=== PATIENT | male | born 1965 | race Caucasian/White ===

== ENCOUNTER 2019-05-14 16:04 | Emergency (ER) | payer OTHER ==
[2019-05-14 16:43] VITALS: O2SAT 100
[2019-05-14] MEDS ORDERED: MORPHINE SULFATE 4 MG INJ IV ONE (17:39)
[2019-05-14] MEDS ORDERED: Zofran 4 MG/2 ML VIAL IV ONE (17:39)
[2019-05-14] MEDS ORDERED: Sodium Chloride 0.9% 1000 ML 1,000 ML IV STA (17:39)
--- NOTE | 2019-05-14 17:39 | ERPHSYRPT ---
- History of Present Illness Time Seen by Provider: 05/14/19 17:25 Historian: patient Exam Limitations: no limitations Patient Subjective Stated Complaint: PATIENT WITH SOFT SOFTBALL PALPABLE MASS TO RIGHT GROIN. PATIENT STATES AREA HAS BEEN GETTING BIGGER IN LAST YEAR OR SO. PATIENT WITH SMALLER PALPABLE MASS ABOVE UMBILICUS. PATIENT CONCERNED WITH LIFTING OBJECTS. PATIENT STATES PAIN IS 4 OUT OF 10. Triage Nursing Assessment: PATIENT AMBULATED TO ROOM WITH STEADY GAIT. PATIENT ALERT/ORIENTATED TIMES 4. PATIENT ANSWERS QUESTIONS APPROPRIATLEY. PATIENT OVERALL CENTRAL COLOR PALE. PATIENT APPEARS EMACIATED. PATIENT ADMITTED TO METH USE. PATIENT STATED LAST TIME WAS ON Wednesday05/10/19. PATIENT STATES HE DID HAVE LARGE ALCOHOL CONSUMPTION ABOUT 4 MONTHS. PALPABLE MASS NOTED TO RIGHT GROIN ABOUT THE SIZE OF SOFTBALL. NO REDNESS OR WARMTH NOTED TO AREA. PATIENT WITH SMALLER PALPABLE MASS ABOVE UMBILICUS. PATIENT STATES HE HAS HAD ALSO FOR SEVERAL YEARS. PATIENT STATES HE DOESNT HAVE PCP. PATIENT LUNGS DIMINISHED THROUGHOUT ALL BASES A/P. + BOWEL SOUNDS TIMES 4 QUADS. ABD FLAT NON-DISTENDED. Physician History: for the past 5 months pt has had daily pain over a bulge in his right groin; for the past 3 months pt has had pain over a bulge just above his umbilicus. pt has had intermittent difficulty voiding for the past 5 months. 3 weeks ago pt had 3 days of vomiting without blood. for the past 2 days pt has had chills. pt also states he has had diarrhea for the past 3 weeks without blood. Allergies/Adverse Reactions: Penicillins Allergy (Verified 05/14/19 16:55) Home Medications: No Reportable Medications [No Reported Medications] 05/14/19 [History] Hx Tetanus, Diphtheria Vaccination/Date Given: No Hx Influenza Vaccination/Date Given: No Hx Pneumococcal Vaccination/Date Given: No Immunizations Up to Date: No - Review of Systems Constitutional: Chills, No Fever Abdominal/Gastrointestinal: Abdominal Pain, Vomiting, Diarrhea Genitourinary Symptoms: Other (intermittent difficulty voiding for the past 5 months.) All Other Systems: Reviewed and Negative - Past Medical History Pertinent Past Medical History: No Neurological History: No Pertinent History ENT History: No Pertinent History Cardiac History: No Pertinent History Respiratory History: No Pertinent History Endocrine Medical History: No Pertinent History Musculoskeletal History: No Pertinent History GI Medical History: No Pertinent History History: No Pertinent History Psycho-Social History: No Pertinent History Male Reproductive Disorders: No Pertinent History - Past Surgical History Past Surgical History: Yes Neuro Surgical History: No Pertinent History Cardiac: No Pertinent History Respiratory: No Pertinent History Gastrointestinal: No Pertinent History Genitourinary: No Pertinent History Musculoskeletal: No Pertinent History Male Surgical History: No Pertinent History - Social History Smoking Status: Current every day smoker How long have you smoked: 40 YEARS Exposure to second hand smoke: Yes Drug Use: marijuana, methamphetamines Patient Lives Alone: No - Nursing Vital Signs Nursing Vital Signs: Initial Vital Signs Temperature 97.3 F 05/14/19 16:17 Pulse Rate 73 05/14/19 16:17 Respiratory Rate 18 05/14/19 16:17 Blood Pressure 184/121 05/14/19 16:17 O2 Sat by Pulse Oximetry 100 05/14/19 16:17 Pain Scale Pain Intensity 2 - Physical Exam General Appearance: alert Eye Exam: PERRL/EOMI Ears, Nose, Throat Exam: pharynx normal, moist mucous membranes Neck Exam: normal inspection Respiratory Exam: normal breath sounds Cardiovascular Exam: normal heart sounds Gastrointestinal/Abdomen Exam: tenderness (periumbilical and RLQ.), hernia ( just above umbilicus - reducible.) Male Genitalia Exam: hernia (right inguinal - reducible.) Back Exam: normal range of motion Extremity Exam: No pedal edema Neurologic Exam: alert, cooperative Skin Exam: warm, dry SpO2 Interpretation: normal SpO2: 100 O2 Delivery: Room Air - Course Nursing assessment & vital signs reviewed: Yes - CT Exams Abdomen/Pelvis CT Interpretation: Discussed w/radiologist (incidental right pelvic kidney and evidence for old granulomatous disease. remaining ct abd/pel without contrast is negative.) - Radiology Ultrasound Exam Scrotal Ultrasound: discussed w/radiologist (bilateral varicoceles and tiny right epididymal cyst.) Ordered Tests: Active Orders 24 hr Category Date Time Status IV Insertion STAT Care 05/14/19 17:39 Active ABDOMEN AND PELVIS W/0 CONTRAS [CT] Stat Exams 05/14/19 17:40 Completed TESTICLE [US] Stat Exams 05/14/19 17:41 Completed AMYLASE Stat Lab 05/14/19 18:07 Completed CBC W DIFF Stat Lab 05/14/19 18:07 Completed CMP Stat Lab 05/14/19 18:07 Completed LIPASE Stat Lab 05/14/19 18:07 Completed Manual Differential NC Stat Lab 05/14/19 18:07 Completed UA W/RFX UR CULTURE Stat Lab 05/14/19 18:56 Completed Medication Summary Discontinued Medications Generic Name Dose Route Start Last Admin Trade Name Fady PRN Reason Stop Dose Admin Doxycycline Hyclate 100 mg 05/14/19 18:57 05/14/19 19:26 Vibramycin 100 Mg PO 05/14/19 18:58 Not Given STAT ONE Doxycycline Hyclate Confirm 05/14/19 19:01 Vibramycin 100 Mg Administered 05/14/19 19:02 Dose 100 mg .ROUTE .STK-MED ONE Sodium Chloride 1,000 mls @ 999 mls/hr 05/14/19 17:39 05/14/19 19:03 Sodium Chloride 0.9% 1000 Ml IV 05/14/19 18:39 Infused .Q1H1M STA Infusion Sodium Chloride Confirm 05/14/19 17:58 Sodium Chloride 0.9% 1000 Ml Administered 05/14/19 17:59 Dose 1,000 mls @ ud .ROUTE .STK-MED ONE Morphine Sulfate 4 mg 05/14/19 17:39 05/14/19 18:02 Morphine Sulfate 4 Mg Inj IV 05/14/19 17:40 4 mg STAT ONE Administration Morphine Sulfate Confirm 05/14/19 17:58 Morphine Sulfate 4 Mg Inj Administered 05/14/19 17:59 Dose 4 mg .ROUTE .STK-MED ONE Ondansetron HCl 4 mg 05/14/19 17:39 05/14/19 18:02 Zofran 4 Mg/2 Ml Vial IV 05/14/19 17:40 4 mg STAT ONE Administration Ondansetron HCl Confirm 05/14/19 17:57 Zofran 4 Mg/2 Ml Vial Administered 05/14/19 17:58 Dose 4 mg .ROUTE .STK-MED ONE Potassium Chloride 40 meq 05/14/19 18:57 05/14/19 19:02 Klor Con 10 Meq PO 05/14/19 18:58 40 meq STAT ONE Administration Potassium Chloride Confirm 05/14/19 19:00 Klor Con 10 Meq Administered 05/14/19 19:01 Dose 40 meq PO .STK-MED ONE Lab/Rad Data: Laboratory Result Diagrams 05/14/19 18:07 05/14/19 18:07 Laboratory Results 05/14/19 05/14/19 05/14/19 Range/Units 18:56 18:07 18:07 WBC 9.0 (4.0-10.5) K/mm3 RBC 4.35 (4.1-5.6) M/mm3 Hgb 14.0 (12.5-18.0) gm/dl Hct 41.0 L (42-50) % MCV 94.3 (78-100) fl MCH 32.2 H (26-32) pg MCHC 34.1 (32-36) g/dl RDW 13.6 (11.5-14.0) % Plt Count 224 (150-450) K/mm3 MPV 9.6 (7.5-11.0) fl Sodium 142 (137-145) mmol/L Potassium 3.2 L (3.5-5.1) mmol/L Chloride 103 (98-107) mmol/L Carbon Dioxide 32 H (22-30) mmol/L Anion Gap 9.5 (5-15) MEQ/L BUN 12 (9-20) mg/dL Creatinine 0.80 (0.66-1.25) mg/dL Estimated GFR > 60.0 ML/MIN Glucose 81 (74-106) mg/dL Calcium 8.5 (8.4-10.2) mg/dL Total Bilirubin 0.50 (0.2-1.3) mg/dL AST 21 (17-59) U/L ALT 13 (0-50) U/L Alkaline Phosphatase 88 (38-126) U/L Serum Total Protein 6.6 (6.3-8.2) g/dL Albumin 3.8 (3.5-5.0) g/dL Amylase 47 (30-110) U/L Lipase 146 (23-300) U/L Urine Color YELLOW (YELLOW) Urine Appearance SLIGHTLY CLOUDY (CLEAR) Urine pH 5.0 (5-6) Ur Specific [place] 1.031 (1.005-1.025) Urine Protein 30 (Negative) Urine Ketones NEGATIVE (NEGATIVE) Urine Blood NEGATIVE (0-5) Sheng/ul Urine Nitrite NEGATIVE (NEGATIVE) Urine Bilirubin NEGATIVE (NEGATIVE) Urine Urobilinogen NEGATIVE (0-1) mg/dL Ur Leukocyte Esterase NEGATIVE (NEGATIVE) Urine WBC (Auto) NONE (0-5) /HPF Urine RBC (Auto) 0-2 (0-2) /HPF U Epithel Cells (Auto) NONE (FEW) /HPF Urine Bacteria (Auto) NONE (NEGATIVE) /HPF Urine Mucus (Auto) SLIGHT (NEGATIVE) /HPF Urine Culture Reflexed NO (NO) Urine Glucose NEGATIVE (NEGATIVE) mg/dL - Progress Progress: unchanged Discussed with Dr.: Padilla (pt to call his office tomorrow([phone]) for an appointment.) - Departure Departure Disposition: Home Clinical Impression: Abdominal pain, right inguinal hernia, Periumbilical hernia, Bilateral varicoceles, Hypokalemia Condition: Stable Critical Care Time: No Referrals: DOCTOR,NO FAMILY [Primary Care Provider] - Instructions: Groin Hernia (DC) Additional Instructions: call dr luna's office tomorrow morning for an appointment regarding the hernias([phone]). avoid exertional activities.
[2019-05-14] MEDS ORDERED: Zofran 4 MG/2 ML VIAL ONE (17:57)
[2019-05-14] MEDS ORDERED: MORPHINE SULFATE 4 MG INJ ONE (17:58)
[2019-05-14] MEDS ORDERED: Sodium Chloride 0.9% 1000 ML 1,000 ML ONE (17:58)
[2019-05-14 18:16] LABS: ALBUMIN 3.8 g/dL (3.5-5.0); ALKALINE PHOSPHATASE 88 U/L (38-126); AMYLASE 47 U/L (30-110); ANION GAP 9.5 MEQ/L (5-15); BLOOD UREA NITROGEN 12 mg/dL (9-20); CHLORIDE 103 mmol/L (98-107); Calcium 8.5 mg/dL (8.4-10.2); Carbon Dioxide 32 mmol/L (22-30); Glucose 81 mg/dL (74-106); LIPASE 146 U/L (23-300); Potassium 3.2 mmol/L (3.5-5.1); SGOT/AST 21 U/L (17-59); SGPT/ALT 13 U/L (0-50); SODIUM 142 mmol/L (137-145); Total Protein 6.6 g/dL (6.3-8.2)
[2019-05-14 18:18] LABS: Mean Cell Volume 94.3 fl (78-100); Mean Corpuscular Hemoglobin 32.2 pg (26-32); Mean Corpuscular Hgb Concent. 34.1 g/dl (32-36); Mean Platelet Volume 9.6 fl (7.5-11.0); Platelet Count 224 K/mm3 (150-450); Red Blood Count 4.35 M/mm3 (4.1-5.6); Red Cell Distribution Width 13.6 % (11.5-14.0)
[2019-05-14] MEDS ORDERED: Klor Con 10 MEQ PO ONE ×2 (18:57→19:00)
--- NOTE | 2019-05-14 18:59 | XRAY ---
Indication: Right-sided pain. Two-dimensional testicular sonogram performed. Comparison: None Both testicles are homogeneous in echogenicity with normal symmetric color blood flow. Right testicle measures 4.1 x 2.3 x 2.1 cm and left testicle measures 4.0 x 1.6 x 2.5 cm. The right epididymis demonstrates a 4 mm cyst. Left epididymis unremarkable. Mild bilateral varicoceles accentuated with Valsalva maneuvering. No suspicious extratesticular mass or hydrocele. Impression: 1. Bilateral varicoceles and tiny right epididymal cyst. 2. Remaining testicle sonogram is negative. Comment: Preliminary report was given.
[2019-05-14] MEDS ORDERED: Vibramycin 100 MG ONE (19:01)
[2019-05-14] MEDS: Vibramycin 100 MG PO ONE ×2 (19:02→19:26)
--- NOTE | 2019-05-14 19:07 | XRAY ---
Indication: Right lower quadrant tenderness. Multiple contiguous axial images obtained through the abdomen and pelvis without contrast as ordered. Comparison: None Lung bases demonstrates minimal fibrosis/scarring. No infiltrate or effusion. Heart is not enlarged. Abdomen/pelvis images are limited due to lack of contrast and also paucity of peritoneal fat. Stomach is distended with food/fluid. Normal air-filled appendix best seen on the reformatted images. Mild fecal debris predominantly in the ascending and transverse colon. No free fluid/air. Gallbladder contracted without gallstones or abnormal biliary distention. Incidental right pelvis kidney and tiny splenic granulomas. Remaining liver, pancreas, spleen, adrenal glands, kidneys, ureters, and bladder appear unremarkable for noncontrast exam. Minimal aortic calcifications without AAA. Osseous structures intact with mild multilevel lumbar degenerative changes. Impression: 1. Limited CT exam due to lack of contrast and paucity of peritoneal fat. 2. Incidental right pelvic kidney and evidence for old granulomatous disease. 3. Remaining CT abdomen/pelvis without contrast exam is negative. Comment: Preliminary interpretation was made by [facility] who does not report incidental pelvic kidney.
[2019-05-14 19:39] LABS: Appearance SLIGHTLY CLOUDY (CLEAR); Bilirubin NEGATIVE (NEGATIVE); Blood NEGATIVE Ery/ul (0-5); Glucose NEGATIVE (NEGATIVE); Ketones NEGATIVE (NEGATIVE); Leukocyte Esterase NEGATIVE (NEGATIVE); Mucus SLIGHT /HPF (NEGATIVE); Nitrite NEGATIVE (NEGATIVE); Protein,Urine Dip 30 (Negative); RBC 0-2 /HPF (0-2); Specific Gravity 1.031 (1.005-1.025); Urobilinogen NEGATIVE mg/dL (0-1)
[2019-05-14 20:36] VITALS: BP 163/112; PULSE 68
[2019-05-15 01:48] LABS: ANISOCYTOSIS RARE; BAND 2 % (0.0-2.0); Eosinophil 10 % (0.00-3.0); Lymphocytes 44 % (24-44); Monocyte 4 % (0.0-12.0); Neutrophils 40 % (36.-66.); Platelet Estimate NORMAL (NORMAL); Poikilocytosis 1+; Polychromasia RARE; Total Cells Counted 100; Toxic Granulation RARE
== END 2019-05-14 20:44 | disposition home or self-care (01) ==
LOC: ED 16:04
DX: R10.9 Unspecified abdominal pain (principal); K40.90 Unilateral inguinal hernia, without obstruction or gangrene, not specified as recurrent; K42.9 Umbilical hernia without obstruction or gangrene; I86.1 Scrotal varices; E87.6 Hypokalemia
CPT/HCPCS: 36000; 36415; 74176; 76870; 80053; 81001; 82150; 83690; 85025; 96360; 96374; 96375; 99284; J2270; J2405; A9270-GY

== ENCOUNTER 2021-04-23 11:30 | Emergency (ER) | payer OTHER ==
--- NOTE | 2021-04-23 11:34 | ERPHSYRPT ---
- History of Present Illness Time Seen by Provider: 04/23/21 11:34 Source: patient Exam Limitations: no limitations Physician History: This is a 56-year-old white male who currently smokes every day and presents to the emergency room with complaint of weakness, vomiting, cough and generalized myalgias and arthralgias. He is also short of breath. Patient does not have a primary care physician and he takes no medications chronically. A few months ago the patient was in [facility][1] in the hospital being evaluated for similar symptoms. However, he left AGAINST MEDICAL ADVICE. He has not seen a health care provider since that time. Patient recently has used marijuana and methamphetamines. Timing/Duration: worse, other (Chronic) Severity of Dyspnea-Max: moderate Severity of Dyspnea-Current: moderate Possible Cause: occasional episodes Modifying Factors: Improves With: activity, coughing Associated Symptoms: cough, loss of appetite, weakness Allergies/Adverse Reactions: Penicillins Allergy (Verified 05/14/19 16:55) Hx Tetanus, Diphtheria Vaccination/Date Given: No Hx Influenza Vaccination/Date Given: No Hx Pneumococcal Vaccination/Date Given: No Travel Risk - International Travel Have you traveled outside of the country in past 3 weeks: No - Coronavirus Screening Are you exhibiting any of the following symptoms?: Yes Symptoms: Cough: New Onset, Shortness of Breath, Vomiting/Diarrhea, Headaches/Body Aches/Fatigue Close contact with a COVID-19 positive Pt in past 14-21 Days: No - Vaccine Status Have you recieved a Covid-19 vaccination: No - Review of Systems Constitutional: Weakness Eyes: No Symptoms Ears, Nose, & Throat: No Symptoms Respiratory: Cough, Dyspnea Cardiac: No Symptoms Abdominal/Gastrointestinal: No Symptoms, Nausea, Vomiting, No Abdominal Pain, No Diarrhea, No Constipation Genitourinary Symptoms: No Symptoms Musculoskeletal: No Symptoms Skin: No Symptoms Neurological: No Symptoms Psychological: No Symptoms Endocrine: No Symptoms Hematologic/Lymphatic: No Symptoms Immunological/Allergic: No Symptoms All Other Systems: Reviewed and Negative - Past Medical History Pertinent Past Medical History: No Neurological History: No Pertinent History ENT History: No Pertinent History Cardiac History: No Pertinent History Respiratory History: No Pertinent History Endocrine Medical History: No Pertinent History Musculoskeletal History: No Pertinent History GI Medical History: No Pertinent History History: No Pertinent History Psycho-Social History: No Pertinent History Male Reproductive Disorders: No Pertinent History - Past Surgical History Past Surgical History: Yes Neuro Surgical History: No Pertinent History Cardiac: No Pertinent History Respiratory: No Pertinent History Gastrointestinal: No Pertinent History Genitourinary: No Pertinent History Musculoskeletal: No Pertinent History Male Surgical History: No Pertinent History - Social History Smoking Status: Current every day smoker How long have you smoked: 40 YEARS Exposure to second hand smoke: Yes Drug Use: marijuana, methamphetamines Patient Lives Alone: No - Nursing Vital Signs Nursing Vital Signs: Initial Vital Signs Temperature 97.9 F 04/23/21 11:30 Pulse Rate 112 H 04/23/21 11:30 Respiratory Rate 20 04/23/21 11:30 Blood Pressure 155/120 04/23/21 11:30 O2 Sat by Pulse Oximetry 96 04/23/21 11:30 Pain Scale Pain Intensity 0 - Physical Exam General Appearance: no apparent distress, alert, anxiety, thin Eye Exam: PERRL/EOMI, eyes nml inspection Ears, Nose, Throat Exam: hearing grossly normal, normal pharynx Neck Exam: normal inspection, non-tender, supple, full range of motion Respiratory Exam: normal breath sounds, lungs clear, airway intact, No chest tenderness, No respiratory distress, No accessory muscle use Cardiovascular/Chest Exam: normal peripheral pulses, tachycardia Abdominal/Gastrointestinal Exam: soft, normal bowel sounds, No tenderness Rectal Exam: not done Extremity Exam: non-tender, normal range of motion, normal inspection, normal capillary refill, no calf tenderness, no pedal edema, pelvis stable Neurologic Exam: alert, oriented x 3, cooperative, whipped topping mixer II-XII nml as tested, normal mood/affect, nml cerebellar function, nml station & gait, sensation nml Skin Exam: normal color, warm, dry Lymphatic Exam: No adenopathy SpO2 Interpretation: normal O2 Delivery: Room Air - Course Nursing assessment & vital signs reviewed: Yes EKG Interpreted by Me: RATE ([id number]), Sinus Tach, prolonged QT interval, Other (This EKG also shows biatrial enlargement, LVH with secondary repolarization abnormality. There are no acute ischemic changes on today's EKG. There are no prior EKGs available for comparison) Ordered Tests: Active Orders 24 hr Category Date Time Status Conditioner Tender STAT Care 04/23/21 11:40 Active EKG-ER Only STAT Care 04/23/21 11:39 Active IV Insertion STAT Care 04/23/21 11:39 Active Pulse Oximetry (ED) STAT Care 04/23/21 11:39 Active CHEST 1 VIEW (PORTABLE) Stat Exams 04/23/21 11:40 Completed BLOOD CULTURE Stat Lab 04/23/21 11:47 Ordered CBC W DIFF Stat Lab 04/23/21 11:39 Completed CMP Stat Lab 04/23/21 11:37 Completed D-DIMER QUANTITATIVE Stat Lab 04/23/21 11:37 Completed INFLUENZA A+B MARYAM Stat Lab 04/23/21 11:41 Completed Lactic Acid Stat Lab 04/23/21 13:00 Completed Manual Differential NC Stat Lab 04/23/21 11:39 Completed [place] Screen Stat Lab 04/23/21 Completed NT PRO BNP Stat Lab 04/23/21 11:37 Completed PROTIME WITH INR Stat Lab 04/23/21 11:37 Completed Sputum Culture [CULTURE,SPUTUM] Stat Lab 04/23/21 Ordered TROPONIN Q3H Lab 04/23/21 11:37 Completed TROPONIN Q3H Lab 04/23/21 14:45 Ordered TROPONIN Q3H Lab 04/23/21 17:45 Ordered TROPONIN Q3H Lab 04/23/21 20:45 Ordered TROPONIN Q3H Lab 04/23/21 23:45 Ordered Medication Summary Generic Name Dose Route Start Last Admin Trade Name Freq PRN Reason Stop Dose Admin Ceftriaxone Sodium/Dextrose 1 g in 50 mls @ 100 mls/hr 04/23/21 15:06 Rocephin 1 Gm-D5w 50 Ml Bag IV 04/23/21 15:35 STAT STA Discontinued Medications Generic Name Dose Route Start Last Admin Trade Name Freq PRN Reason Stop Dose Admin Methylprednisolone Sodium 0 mg 04/23/21 15:08 Succinate 125 mg/ Sterile IV 04/23/21 15:09 Water 2 ml STAT ONE Furosemide 40 mg 04/23/21 14:27 04/23/21 14:34 Furosemide 40 Mg/4 Ml Vial IV 04/23/21 14:28 40 mg STAT ONE Administration Furosemide Confirm 04/23/21 14:30 Furosemide 40 Mg/4 Ml Vial Administered 04/23/21 14:31 Dose 40 mg .ROUTE .STK-MED ONE Lab/Rad Data: Laboratory Result Diagrams 04/23/21 11:39 04/23/21 11:37 Laboratory Results 04/23/21 04/23/21 04/23/21 Range/Units Unknown 13:00 11:41 WBC (4.0-10.5) K/mm3 RBC (4.1-5.6) M/mm3 Hgb (12.5-18.0) gm/dl Hct (42-50) % MCV (78-100) fl MCH (26-32) pg MCHC (32-36) g/dl RDW (11.5-14.0) % Plt Count (150-450) K/mm3 MPV (7.5-11.0) fl PT (9.4-12.5) SECONDS INR (0.8-3.0) D-Dimer (215-500) ng/mL Sodium (137-145) mmol/L Potassium (3.5-5.1) mmol/L Chloride (98-107) mmol/L Carbon Dioxide (22-30) mmol/L Anion Gap (5-15) MEQ/L BUN (9-20) mg/dL Creatinine (0.66-1.25) mg/dL Estimated GFR ML/MIN Glucose (74-106) mg/dL Lactic Acid 1.6 (0.4-2.0) Calcium (8.4-10.2) mg/dL Total Bilirubin (0.2-1.3) mg/dL AST (17-59) U/L ALT (0-50) U/L Alkaline Phosphatase (38-126) U/L Troponin I (0.000-0.034) ng/mL NT-Pro-B Natriuret Pep (0-900) pg/mL Serum Total Protein (6.3-8.2) g/dL Albumin (3.5-5.0) g/dL Monoscreen NEGATIVE (Negative) Influenza Type A Ag (NEGATIVE) Influenza Type B Ag (NEGATIVE) Group A Strep Antibody NOT DETECTED (NEGATIVE) 04/23/21 04/23/21 04/23/21 Range/Units 11:41 11:39 11:37 WBC 11.0 H (4.0-10.5) K/mm3 RBC 4.48 (4.1-5.6) M/mm3 Hgb 14.3 (12.5-18.0) gm/dl Hct 43.4 (42-50) % MCV 96.9 (78-100) fl MCH 31.9 (26-32) pg MCHC 32.9 (32-36) g/dl RDW 13.3 (11.5-14.0) % Plt Count 233 (150-450) K/mm3 MPV 9.9 (7.5-11.0) fl PT (9.4-12.5) SECONDS INR (0.8-3.0) D-Dimer (215-500) ng/mL Sodium (137-145) mmol/L Potassium (3.5-5.1) mmol/L Chloride (98-107) mmol/L Carbon Dioxide (22-30) mmol/L Anion Gap (5-15) MEQ/L BUN (9-20) mg/dL Creatinine (0.66-1.25) mg/dL Estimated GFR ML/MIN Glucose (74-106) mg/dL Lactic Acid (0.4-2.0) Calcium (8.4-10.2) mg/dL Total Bilirubin (0.2-1.3) mg/dL AST (17-59) U/L ALT (0-50) U/L Alkaline Phosphatase (38-126) U/L Troponin I 0.099 H* (0.000-0.034) ng/mL NT-Pro-B Natriuret Pep (0-900) pg/mL Serum Total Protein (6.3-8.2) g/dL Albumin (3.5-5.0) g/dL Monoscreen (Negative) Influenza Type A Ag NEGATIVE (NEGATIVE) Influenza Type B Ag NEGATIVE (NEGATIVE) Group A Strep Antibody (NEGATIVE) 04/23/21 04/23/21 Range/Units 11:37 11:37 WBC (4.0-10.5) K/mm3 RBC (4.1-5.6) M/mm3 Hgb (12.5-18.0) gm/dl Hct (42-50) % MCV (78-100) fl MCH (26-32) pg MCHC (32-36) g/dl RDW (11.5-14.0) % Plt Count (150-450) K/mm3 MPV (7.5-11.0) fl PT 14.4 H (9.4-12.5) SECONDS INR 1.22 (0.8-3.0) D-Dimer 403 (215-500) ng/mL Sodium 138 (137-145) mmol/L Potassium 4.4 (3.5-5.1) mmol/L Chloride 106 (98-107) mmol/L Carbon Dioxide 24 (22-30) mmol/L Anion Gap 11.9 (5-15) MEQ/L BUN 19 (9-20) mg/dL Creatinine 0.97 (0.66-1.25) mg/dL Estimated GFR > 60.0 ML/MIN Glucose 144 H (74-106) mg/dL Lactic Acid (0.4-2.0) Calcium 8.5 (8.4-10.2) mg/dL Total Bilirubin 1.90 H (0.2-1.3) mg/dL AST 50 (17-59) U/L ALT 52 H (0-50) U/L Alkaline Phosphatase 100 (38-126) U/L Troponin I (0.000-0.034) ng/mL NT-Pro-B Natriuret Pep 26501 H (0-900) pg/mL Serum Total Protein 6.1 L (6.3-8.2) g/dL Albumin 3.8 (3.5-5.0) g/dL Monoscreen (Negative) Influenza Type A Ag (NEGATIVE) Influenza Type B Ag (NEGATIVE) Group A Strep Antibody (NEGATIVE) - Progress Progress: improved, re-examined Air Movement: good Progress Note: 04/23/21 12:42 Chest x-ray shows borderline cardiomegaly. There are no acute cardiopulmonary processes. 04/23/21 15:14 Medical decision making: Patient was informed that he had a non-STEMI as well as CHF. He has a productive cough of some greenish-brown sputum. I felt that the patient would be best served by being placed in observation in the hospital. Patient is declining. Patient is wanting to sign out AGAINST MEDICAL ADVICE. I told him that his symptoms may worsen. He may be having an evolving heart attack. He may have an early pneumonia that we are just not seeing on the chest x-ray at this time. Patient realizes that he may if this is an evolving heart attack. Patient states he is feeling better and wants to be discharged to home. We will treat him with antibiotics, steroids and Lasix. Patient will sign AGAINST MEDICAL ADVICE form. He is told to return to the emergency department if symptoms worsen Counseled pt/family regarding: lab results, diagnosis, rad results, smoking cessation - Departure Departure Disposition: AMA Clinical Impression: Non-STEMI (non-ST elevated myocardial infarction), Shortness of breath, Congestive heart failure Condition: Fair Critical Care Time: Yes Critical Care Time(excluding separately billable procedures): Critical 30-74 mins (35) Referrals: DOCTOR,NO FAMILY [Primary Care Provider] - Follow up/PCP as directed Instructions: Heart Failure Additional Instructions: Take your medication as prescribed. Return to the emergency department if your symptoms worsen. Follow-up with your primary care physician in the next 48 hours for reevaluation. Prescriptions: Prednisone 10 mg [Deltasone 10 mg] 10 mg PO TID #12 tablet Furosemide 20 mg [Lasix 20 mg] 20 mg PO BID #10 tablet Albuterol 8 gm Mdi Hfa [Ventolin Hfa MDI] 8 gm IH Q4H #1 gm Azithromycin 250 mg [Zithromax 250 MG TABLET] 250 mg PO ZPACK #6 tablet
--- NOTE | 2021-04-23 12:11 | XRAY ---
Indication: Short of breath. Comparison: None Portable apical lordotic chest hyperinflated with borderline cardiomegaly and minimal interstitial edema. No focal infiltrate, consolidation, or large effusion. Bony thorax intact.
[2021-04-23 12:23] LABS: Hematocrit 43.4 % (42-50); Hemoglobin 14.3 gm/dl (12.5-18.0); Mean Cell Volume 96.9 fl (78-100); Mean Corpuscular Hemoglobin 31.9 pg (26-32); Mean Corpuscular Hgb Concent. 32.9 g/dl (32-36); Mean Platelet Volume 9.9 fl (7.5-11.0); Platelet Count 233 K/mm3 (150-450); Red Blood Count 4.48 M/mm3 (4.1-5.6); Red Cell Distribution Width 13.3 % (11.5-14.0)
[2021-04-23 12:27] LABS: INR 1.22 (0.8-3.0); PROTIME 14.4 SECONDS (9.4-12.5)
[2021-04-23 12:42] LABS: ALBUMIN 3.8 g/dL (3.5-5.0); ALKALINE PHOSPHATASE 100 U/L (38-126); ANION GAP 11.9 MEQ/L (5-15); BLOOD UREA NITROGEN 19 mg/dL (9-20); CHLORIDE 106 mmol/L (98-107); Calcium 8.5 mg/dL (8.4-10.2); Carbon Dioxide 24 mmol/L (22-30); Creatinine 1 0.97 mg/dL (0.66-1.25); EST GLOMERULAR FILTRATION RATE > 60.0 ML/MIN; Glucose 144 mg/dL (74-106); NT PRO BNP 13600 pg/mL (0-900); Potassium 4.4 mmol/L (3.5-5.1); SGOT/AST 50 U/L (17-59); SGPT/ALT 52 U/L (0-50); SODIUM 138 mmol/L (137-145); Total Protein 6.1 g/dL (6.3-8.2)
[2021-04-23 13:26] VITALS: BP 148/100; PULSE 102; O2SAT 98
[2021-04-23 13:58] LABS: INFLUENZA A NEGATIVE (NEGATIVE); INFLUENZA B NEGATIVE (NEGATIVE)
[2021-04-23] MEDS ORDERED: Lasix 40 MG/4 ML IV ONE (14:27)
[2021-04-23] MEDS ORDERED: Lasix 40 MG/4 ML ONE (14:30)
[2021-04-23] MEDS ORDERED: ROCEPHIN 1 Gm-D5w 50 ml Bag** 1 G/50 ML IVPB IV STA (15:06)
[2021-04-23] MEDS ORDERED: solu-MEDROL 125 MG, Sterile H2O 10 ml 2 ML IV ONE ×2 (15:08)
[2021-04-23] MEDS ORDERED: Sterile H2O 10 ml IJ ONE (15:18)
[2021-04-23] MEDS ORDERED: solu-MEDROL ONE (15:18)
[2021-04-23] MEDS ORDERED: ROCEPHIN 1 Gm-D5w 50 ml Bag** 1 G/50 ML IVPB IV ONE (15:18)
== END 2021-04-23 16:19 | disposition left against medical advice (07) ==
LOC: ED 11:30
DX: I21.4 Non-ST elevation (NSTEMI) myocardial infarction (principal); Z72.0 Tobacco use; R06.02 Shortness of breath; I50.9 Heart failure, unspecified; R11.11 Vomiting without nausea; R05.9 Cough, unspecified; M79.10 Myalgia, unspecified site; Z79.52 Long term (current) use of systemic steroids; F15.90 Other stimulant use, unspecified, uncomplicated; F12.90 Cannabis use, unspecified, uncomplicated
CPT/HCPCS: 36000; 36415; 71045; 80053; 83605; 83880; 84484; 85025; 85379; 85610; 86308; 87040; 87070; 87077; 87400; 87651; 93005; 93041; 94760; 96374; 96375; 99284; 99291; J0696; J1940; J2930

== ENCOUNTER 2021-05-06 01:05 | Inpatient (IN) | payer OTHER ==
[2021-05-06] MEDS ORDERED: NITRO-BID 2% UD PACKETS TOP ONE (01:25)
[2021-05-06] MEDS ORDERED: NITRO-BID 2% UD PACKETS ONE (01:35)
[2021-05-06] MEDS ORDERED: BABY ASPIRIN 81 MG CHEW ONE (01:35)
[2021-05-06] MEDS: BABY ASPIRIN 81 MG CHEW PO ONE ×2 (01:36→01:38)
[2021-05-06 01:45] LABS: Absolute Neutrophil Ct (ANC) 8.03 (1.4-6.9); Basophil (Absolute #) 0.14 (0-0.4); Eosinophil (Absolute #) 0.49 (0-0.5); Hematocrit 40.2 % (42-50); Hemoglobin 12.8 gm/dl (12.5-18.0); Lymphocyte (Absolute #) 2.66 (1.0-4.6); Lymphocytes % 21.7 % (24.0-44.0); Mean Cell Volume 99.3 fl (78-100); Mean Corpuscular Hemoglobin 31.6 pg (26-32); Mean Corpuscular Hgb Concent. 31.8 g/dl (32-36); Mean Platelet Volume 9.4 fl (7.5-11.0); Monocyte (Absolute #) 0.93 (0.0-1.3); Monocytes % 7.6 % (0.0-12.0); Neutrophil % 65.6 % (36.0-66.0); Platelet Count 308 K/mm3 (150-450); Red Blood Count 4.05 M/mm3 (4.1-5.6); Red Cell Distribution Width 13.1 % (11.5-14.0); White Blood Count 12.3 K/mm3 (4.0-10.5)
[2021-05-06 02:12] LABS: ALBUMIN 3.1 g/dL (3.5-5.0); ALKALINE PHOSPHATASE 97 U/L (38-126); ANION GAP 7.8 MEQ/L (5-15); BLOOD UREA NITROGEN 18 mg/dL (9-20); CHLORIDE 106 mmol/L (98-107); Calcium 8.6 mg/dL (8.4-10.2); Carbon Dioxide 31 mmol/L (22-30); Creatinine 1 1.14 mg/dL (0.66-1.25); EST GLOMERULAR FILTRATION RATE > 60.0 ML/MIN; Glucose 104 mg/dL (74-106); NT PRO BNP 7800 pg/mL (0-900); Potassium 4.9 mmol/L (3.5-5.1); SGOT/AST 45 U/L (17-59); SGPT/ALT 50 U/L (0-50); SODIUM 139 mmol/L (137-145); Total Protein 5.3 g/dL (6.3-8.2)
[2021-05-06] MEDS ORDERED: Lasix 40 MG/4 ML IV ONE (02:25)
--- NOTE | 2021-05-06 02:30 | ERPHSYRPT ---
- History of Present Illness Time Seen by Provider: 05/06/21 01:10 Historian: patient Exam Limitations: no limitations Patient Subjective Stated Complaint: "My chest was hurting." Triage Nursing Assessment: 56 y/o white male with PMH of pneumonia and CHF. Reported that he was walking from work at [employer] at 0015 to [facility] and had to stop four times d/t chest pain and shortness of breath. He reported recently being diagnosed with walking pneumonia for which he was presecribed a z-pack, prednisone, and an albuterol inhaler for which he completed all but one pill of the z-pack. patient described the pain to be sharp, substernal, and non- radiating. Denied associated dizziness, N/V, cold sweats. pain relieved by rest and slightly relieved by the ASA per EMS. Denied palpitations. The patient reported that he is currently homeless and was originally from [facility]. He has had nowhere to sleep for the last two nights. Pupils 3mm bilateral. Neck supple without JVD, bruits/thrills. Symmetrical chest expansion. heart tones S1/S2 RRR without extra sounds. Lungs vesicular with adequate airflow. Peripheral pulses +3 bialteral. +1 non-pitting edema in the bilateral lower extremities. Physician History: Patient is a 56-year-old male presents to our ED with complaints of chest pain. Patient states he was walking from work to a local gas station when chest pain started. Patient had to stop several times due to chest pain. Patient has a history of pneumonia. Patient also has a history of congestive heart failure. No history of ME. Patient states that his symptoms improved upon resting. No associated nausea vomiting or diaphoresis. No dizziness. No trauma. No lightheadedness. Patient states he is currently homeless. He has no local family support. Patient voices no other complaint or concerns at this time. Timing/Duration: today Activities at Onset: activity Quality: sharpness Location: substernal Chest Pain Radiation: no radiation Severity of Pain-Max: moderate Severity of Pain-Current: mild Modifying Factors: Improves With: rest Associated Symptoms: denies symptoms, No nausea, No vomiting, No shortness of breath, No cough, No hurts to breathe, No diaphoresis, No weakness, No swelling/lump in chest Prior Chest Pain/Cardiac Workup: no prior chest pain Nitro Today/Relief: no nitro taken today Aspirin Treatment Today: 325 mg x 1 Allergies/Adverse Reactions: Penicillins Allergy (Severe, Verified 05/06/21 01:14) Hx Tetanus, Diphtheria Vaccination/Date Given: No Hx Influenza Vaccination/Date Given: No Hx Pneumococcal Vaccination/Date Given: No Travel Risk - International Travel Have you traveled outside of the country in past 3 weeks: No - Coronavirus Screening Are you exhibiting any of the following symptoms?: No Close contact with a COVID-19 positive Pt in past 14-21 Days: No - Vaccine Status Have you recieved a Covid-19 vaccination: No - Review of Systems Constitutional: No Symptoms, No Fever, No Chills Eyes: No Symptoms Ears, Nose, & Throat: No Symptoms Respiratory: No Symptoms, No Cough, No Dyspnea Cardiac: No Symptoms, No Chest Pain, No Edema, No Syncope Abdominal/Gastrointestinal: No Symptoms, No Abdominal Pain, No Nausea, No Vomiting, No Diarrhea Genitourinary Symptoms: No Symptoms, No Dysuria Musculoskeletal: No Symptoms, No Back Pain, No Neck Pain Skin: No Symptoms, No Rash Neurological: No Symptoms, No Dizziness, No Focal Weakness, No Sensory Changes Psychological: No Symptoms Endocrine: No Symptoms Hematologic/Lymphatic: No Symptoms Immunological/Allergic: No Symptoms All Other Systems: Reviewed and Negative - Past Medical History Pertinent Past Medical History: No Neurological History: No Pertinent History ENT History: No Pertinent History Cardiac History: No Pertinent History Respiratory History: Pneumonia Endocrine Medical History: No Pertinent History Musculoskeletal History: No Pertinent History GI Medical History: No Pertinent History History: No Pertinent History Psycho-Social History: No Pertinent History Male Reproductive Disorders: No Pertinent History - Past Surgical History Past Surgical History: Yes Neuro Surgical History: No Pertinent History Cardiac: No Pertinent History Respiratory: No Pertinent History Gastrointestinal: No Pertinent History Genitourinary: No Pertinent History Musculoskeletal: No Pertinent History Male Surgical History: No Pertinent History - Social History Smoking Status: Current every day smoker How long have you smoked: 40 YEARS Exposure to second hand smoke: Yes Drug Use: marijuana, methamphetamines Patient Lives Alone: No - Nursing Vital Signs Nursing Vital Signs: Initial Vital Signs Temperature 99 F 05/06/21 01:05 Pulse Rate 99 H 05/06/21 01:05 Respiratory Rate 26 H 05/06/21 01:05 Blood Pressure 166/118 05/06/21 01:05 O2 Sat by Pulse Oximetry 98 05/06/21 01:05 Pain Scale Pain Intensity 0 - Physical Exam General Appearance: no apparent distress, alert Eye Exam: PERRL/EOMI, eyes nml inspection Ears, Nose, Throat Exam: normal ENT inspection, moist mucous membranes Neck Exam: normal inspection, non-tender, supple, full range of motion Respiratory Exam: normal breath sounds, lungs clear, No respiratory distress Cardiovascular Exam: regular rate/rhythm, normal heart sounds Gastrointestinal/Abdomen Exam: soft, No tenderness, No mass Back Exam: normal inspection, No CVA tenderness, No vertebral tenderness Extremity Exam: normal inspection, normal range of motion, pedal edema, swelling Neurologic Exam: alert, oriented x 3, cooperative, normal mood/affect, sensation nml, No motor deficits Skin Exam: normal color, warm, dry Lymphatic Exam: No adenopathy SpO2 Interpretation: normal SpO2: 98 O2 Delivery: Room Air - Course Nursing assessment & vital signs reviewed: Yes EKG Interpreted by Me: RATE (100), Sinus Tach, NORMAL AXIS, NORMAL INTERVALS, prolonged QT interval - Radiology Exams Chest X-ray Interpretation: Interpreted by me (Hyperinflated chest. Minimal pulmonary edema. Normal cardiac silhouette. Intact bony thorax) Ordered Tests: Active Orders 24 hr Category Date Time Status Irrigation System Operator STAT Care 05/06/21 01:26 Active EKG-ER Only STAT Care 05/06/21 01:25 Active IV Insertion STAT Care 05/06/21 01:25 Active Pulse Oximetry (ED) STAT Care 05/06/21 01:25 Active CHEST 1 VIEW (PORTABLE) Stat Exams 05/06/21 01:26 Taken CBC W DIFF Stat Lab 05/06/21 01:25 Completed CMP Stat Lab 05/06/21 01:25 Completed NT PRO BNP Stat Lab 05/06/21 01:25 Completed TROPONIN Q3H Lab 05/06/21 01:30 Completed TROPONIN Q3H Lab 05/06/21 04:30 Completed TROPONIN Q3H Lab 05/06/21 07:30 Ordered TROPONIN Q3H Lab 05/06/21 10:30 Ordered TROPONIN Q3H Lab 05/06/21 13:30 Ordered Transfer Order Routine Transfer 05/06/21 Ordered Medication Summary Discontinued Medications Generic Name Dose Route Start Last Admin Trade Name Freq PRN Reason Stop Dose Admin Aspirin 324 mg 05/06/21 01:25 05/06/21 01:38 Aspirin 81 Mg Tab.Chew PO 05/06/21 01:26 Not Given STAT ONE Aspirin Confirm 05/06/21 01:35 Aspirin 81 Mg Tab.Chew Administered 05/06/21 01:36 Dose 324 mg .ROUTE .STK-MED ONE Furosemide 40 mg 05/06/21 02:25 05/06/21 02:53 Furosemide 40 Mg/4 Ml Vial IV 05/06/21 02:26 40 mg STAT ONE Administration Furosemide Confirm 05/06/21 02:53 Furosemide 40 Mg/4 Ml Vial Administered 05/06/21 02:54 Dose 40 mg .ROUTE .STK-MED ONE Nitroglycerin 1 gm 05/06/21 01:25 05/06/21 01:36 Nitroglycerin 1 Gm Packet TOP 05/06/21 01:26 1 gm STAT ONE Administration Nitroglycerin Confirm 05/06/21 01:35 Nitroglycerin 1 Gm Packet Administered 05/06/21 01:36 Dose 1 gm .ROUTE .STK-MED ONE Lab/Rad Data: Laboratory Result Diagrams 05/06/21 01:25 05/06/21 01:25 Laboratory Results 05/06/21 05/06/21 05/06/21 Range/Units 04:30 01:30 01:25 WBC (4.0-10.5) K/mm3 RBC (4.1-5.6) M/mm3 Hgb (12.5-18.0) gm/dl Hct (42-50) % MCV (78-100) fl MCH (26-32) pg MCHC (32-36) g/dl RDW (11.5-14.0) % Plt Count (150-450) K/mm3 MPV (7.5-11.0) fl Gran % (36.0-66.0) % Eos # (Auto) (0-0.5) Absolute Lymphs (auto) (1.0-4.6) Absolute Monos (auto) (0.0-1.3) Lymphocytes % (24.0-44.0) % Monocytes % (0.0-12.0) % Eosinophils % (0.00-5.0) % Basophils % (0.0-0.4) % Absolute Granulocytes (1.4-6.9) Basophils # (0-0.4) Sodium 139 (137-145) mmol/L Potassium 4.9 (3.5-5.1) mmol/L Chloride 106 (98-107) mmol/L Carbon Dioxide 31 H (22-30) mmol/L Anion Gap 7.8 (5-15) MEQ/L BUN 18 (9-20) mg/dL Creatinine 1.14 (0.66-1.25) mg/dL Estimated GFR > 60.0 ML/MIN Glucose 104 (74-106) mg/dL Calcium 8.6 (8.4-10.2) mg/dL Total Bilirubin 0.60 (0.2-1.3) mg/dL AST 45 (17-59) U/L ALT 50 (0-50) U/L Alkaline Phosphatase 97 (38-126) U/L Troponin I 0.052 H* 0.051 H* (0.000-0.034) ng/mL NT-Pro-B Natriuret Pep 7800 H (0-900) pg/mL Serum Total Protein 5.3 L (6.3-8.2) g/dL Albumin 3.1 L (3.5-5.0) g/dL 05/06/21 Range/Units 01:25 WBC 12.3 H (4.0-10.5) K/mm3 RBC 4.05 L (4.1-5.6) M/mm3 Hgb 12.8 (12.5-18.0) gm/dl Hct 40.2 L (42-50) % MCV 99.3 (78-100) fl MCH 31.6 (26-32) pg MCHC 31.8 L (32-36) g/dl RDW 13.1 (11.5-14.0) % Plt Count 308 (150-450) K/mm3 MPV 9.4 (7.5-11.0) fl Gran % 65.6 (36.0-66.0) % Eos # (Auto) 0.49 (0-0.5) Absolute Lymphs (auto) 2.66 (1.0-4.6) Absolute Monos (auto) 0.93 (0.0-1.3) Lymphocytes % 21.7 L (24.0-44.0) % Monocytes % 7.6 (0.0-12.0) % Eosinophils % 4.0 (0.00-5.0) % Basophils % 1.1 (0.0-0.4) % Absolute Granulocytes 8.03 H (1.4-6.9) Basophils # 0.14 (0-0.4) Sodium (137-145) mmol/L Potassium (3.5-5.1) mmol/L Chloride (98-107) mmol/L Carbon Dioxide (22-30) mmol/L Anion Gap (5-15) MEQ/L BUN (9-20) mg/dL Creatinine (0.66-1.25) mg/dL Estimated GFR ML/MIN Glucose (74-106) mg/dL Calcium (8.4-10.2) mg/dL Total Bilirubin (0.2-1.3) mg/dL AST (17-59) U/L ALT (0-50) U/L Alkaline Phosphatase (38-126) U/L Troponin I (0.000-0.034) ng/mL NT-Pro-B Natriuret Pep (0-900) pg/mL Serum Total Protein (6.3-8.2) g/dL Albumin (3.5-5.0) g/dL - Progress Progress: improved Air Movement: good Progress Note: Patient reassessed. He is pain-free. Troponin number one 0.051. Troponin #2 was 0.052. Repeat EKG unchanged. Patient resting comfortably. Case discussed with Dr. Boucher of cardiology who accepts consult. His telemetry cardiology consult number is area code [phone]. This number can be called after 830 this morning for a consultation. Case discussed with Dr. Hill who accepts admission to observation. Plan of care discussed with patient. Patient agrees admission [facility] for further evaluation and treatment. Echocardiogram ordered. Nitroglycerin and Lasix administered. COVID test pending. 05/06/21 05:27 Covid testing pending. Patient endorsed to Dr. Perez. Admit orders completed. Patient is currently set up to be admitted to Dr. Hill. However if COVID test comes back positive we will have to switch the admit to Dr. Kingsley 05/06/21 06:42 Blood Culture(s) Obtained: No Antibiotics given: No Discussed with DrArnoldo: Rojelio Will see patient in: hospital (observation) Counseled pt/family regarding: lab results, diagnosis, rad results - Departure Departure Disposition: Observation Clinical Impression: NSTEMI (non-ST elevated myocardial infarction), Elevated troponin, Leukocytosis, Elevated brain natriuretic peptide (BNP) level, CHF (congestive heart failure) Condition: Stable Critical Care Time: No Referrals: DOCTOR,NO FAMILY [Primary Care Provider] - Follow up/PCP as directed Instructions: Heart Failure
[2021-05-06] MEDS ORDERED: Lasix 40 MG/4 ML ONE (02:53)
[2021-05-06 06:37] LABS: INFLUENZA A NEGATIVE (NEGATIVE); INFLUENZA B NEGATIVE (NEGATIVE); RESPIRATORY SYNCTIAL VIRUS NEGATIVE (Negative); SARS-CoV-2 Xpert Express NEGATIVE (NEGATIVE)
--- NOTE | 2021-05-06 09:30 | XRAY ---
Indication: Chest pain. Comparison: April 23, 2021. Portable chest again demonstrates COPD and minimal bibasilar fibrosis/scarring. No focal infiltrate, consolidation, or large effusion. Heart not enlarged. Bony thorax intact. Impression: Nonacute chest with chronic features.
[2021-05-06] MEDS ORDERED: TYLENOL EXTRA STRENGTH 500 MG PO STA (12:25)
--- NOTE | 2021-05-06 17:41 | PCM.HP ---
History of Present Illness - Chief Complaint Chief Complaint: CHF, Chest pain History of Present Illness: is a 56 year old male who presented to ER with chest pain. He has a Hx CHF but not on cardiac meds and denies Hx NH. Per ER recent "walking pneumonia" treated with prednisone and Zpak. He is homeless but states he walked out recently and this is repeated behavior. He works at [employer] and was leaving work,walking to the gas station when he started having substernal chst pain .Pain was severe and he had to stop walking several times. EMS brought patient to ER.Troponins and BNP were elevated. ER tried to transfer to hosp with Cardiology/slab stripper and none available. Cardiac consult with Dr Buchanan . Patient given IV Lasix and nitro paste. He was admitted to Med Surg on [facility]. - Review of Systems Constitutional: No Symptoms Eyes: No Symptoms Ears, Nose, & Throat: No Symptoms Respiratory: Other (just finishing Zpak and prednisone for "walking Pneumonia") Abdominal/Gastrointestinal: No Symptoms Genitourinary Symptoms: No Symptoms Musculoskeletal: No Symptoms Skin: No Symptoms Neurological: Headache (with Nitro) Psychological: Drug Abuse (stated not using now) Medications & Allergies Home Medications: Home Medication List Albuterol 8 gm Mdi Hfa [Ventolin Hfa MDI] 8 gm IH Q4H #1 gm 04/23/21 [Rx Confirmed 05/06/21] Allergies/Adverse Reactions: Allergies Allergy/AdvReac Type Severity Reaction Status Date / Time Penicillins Allergy Severe Verified 05/06/21 01:14 - Past Medical History Past Medical History: Yes Neurological History: No Pertinent History ENT History: No Pertinent History Cardiac History: No Pertinent History Respiratory History: No Pertinent History Endocrine Medical History: No Pertinent History Musculoskelatal History: No Pertinent History GI Medical History: No Pertinent History History: No Pertinent History Pyscho-Social History: No Pertinent History Male Reproductive Disorders: No Pertinent History - Past Surgical History Past Surgical History: Yes (as a child) Neuro Surgical History: No Pertinent History Cardiac History: No Pertinent History Respiratory Surgery: No Pertinent History GI Surgical History: No Pertinent History Genitourinary Surgical Hx: No Pertinent History Musculskeletal Surgical Hx: No Pertinent History Male Surgical History: No Pertinent History - Social History Smoking Status: Current every day smoker How long have you smoked: SINCE 13 Exposure to second hand smoke: Yes Alcohol: None Drug Use: marijuana, methamphetamines - Physical Exam Vital Signs: Vital Signs - 24 hr Temp Pulse Resp BP Pulse Ox 05/06/21 16:00 96.4 F 82 18 146/95 95 05/06/21 12:00 97.8 F 80 12 115/77 95 05/06/21 09:02 98.7 F 83 16 134/95 91 L 05/06/21 07:57 78 18 122/79 97 05/06/21 06:45 98 05/06/21 06:04 82 15 137/85 94 L 05/06/21 05:00 83 16 149/92 98 05/06/21 04:00 78 16 134/82 98 05/06/21 03:56 82 16 158/93 98 05/06/21 03:00 88 18 152/104 98 05/06/21 02:05 91 H 18 167/114 95 05/06/21 01:33 98 05/06/21 01:05 99 F 99 H 26 H 166/118 98 General Appearance: no apparent distress (patient had a large breakfast appeared very hungry per nursing and fell asleep,is resting comfortably), thin (patient is sleeping and answers questions with a nod but not wanting to wake up to talk,alert and oriented before napping this morning per nurse) Eye Exam: other (no drainage) Ears, Nose, Throat Exam: normal ENT inspection Neck Exam: normal inspection Respiratory Exam: normal breath sounds Cardiovascular Exam: regular rate/rhythm Gastrointestinal/Abdomen Exam: soft, normal bowel sounds (nontender) Back Exam: other (per ER normal inspection) Extremity Exam: normal inspection Skin Exam: normal color, warm, dry Results - Labs Lab/Micro Results: Lab Results-Last 24 Hours 05/06/21 05/06/21 05/06/21 Range/Units 01:25 01:25 01:30 WBC 12.3 H (4.0-10.5) K/mm3 RBC 4.05 L (4.1-5.6) M/mm3 Hgb 12.8 (12.5-18.0) gm/dl Hct 40.2 L (42-50) % MCV 99.3 (78-100) fl MCH 31.6 (26-32) pg MCHC 31.8 L (32-36) g/dl RDW 13.1 (11.5-14.0) % Plt Count 308 (150-450) K/mm3 MPV 9.4 (7.5-11.0) fl Gran % 65.6 (36.0-66.0) % Eos # (Auto) 0.49 (0-0.5) Absolute Lymphs (auto) 2.66 (1.0-4.6) Absolute Monos (auto) 0.93 (0.0-1.3) Lymphocytes % 21.7 L (24.0-44.0) % Monocytes % 7.6 (0.0-12.0) % Eosinophils % 4.0 (0.00-5.0) % Basophils % 1.1 (0.0-0.4) % Absolute Granulocytes 8.03 H (1.4-6.9) Basophils # 0.14 (0-0.4) Sodium 139 (137-145) mmol/L Potassium 4.9 (3.5-5.1) mmol/L Chloride 106 (98-107) mmol/L Carbon Dioxide 31 H (22-30) mmol/L Anion Gap 7.8 (5-15) MEQ/L BUN 18 (9-20) mg/dL Creatinine 1.14 (0.66-1.25) mg/dL Estimated GFR > 60.0 ML/MIN Glucose 104 (74-106) mg/dL Calcium 8.6 (8.4-10.2) mg/dL Total Bilirubin 0.60 (0.2-1.3) mg/dL AST 45 (17-59) U/L ALT 50 (0-50) U/L Alkaline Phosphatase 97 (38-126) U/L Troponin I 0.051 H* (0.000-0.034) ng/mL NT-Pro-B Natriuret Pep 7800 H (0-900) pg/mL Serum Total Protein 5.3 L (6.3-8.2) g/dL Albumin 3.1 L (3.5-5.0) g/dL Influenza Type A Ag (NEGATIVE) Influenza Type B Ag (NEGATIVE) RSV (PCR) (Negative) SARS-CoV-2 (PCR) (NEGATIVE) 05/06/21 05/06/21 05/06/21 Range/Units 04:30 05:49 07:35 WBC (4.0-10.5) K/mm3 RBC (4.1-5.6) M/mm3 Hgb (12.5-18.0) gm/dl Hct (42-50) % MCV (78-100) fl MCH (26-32) pg MCHC (32-36) g/dl RDW (11.5-14.0) % Plt Count (150-450) K/mm3 MPV (7.5-11.0) fl Gran % (36.0-66.0) % Eos # (Auto) (0-0.5) Absolute Lymphs (auto) (1.0-4.6) Absolute Monos (auto) (0.0-1.3) Lymphocytes % (24.0-44.0) % Monocytes % (0.0-12.0) % Eosinophils % (0.00-5.0) % Basophils % (0.0-0.4) % Absolute Granulocytes (1.4-6.9) Basophils # (0-0.4) Sodium (137-145) mmol/L Potassium (3.5-5.1) mmol/L Chloride (98-107) mmol/L Carbon Dioxide (22-30) mmol/L Anion Gap (5-15) MEQ/L BUN (9-20) mg/dL Creatinine (0.66-1.25) mg/dL Estimated GFR ML/MIN Glucose (74-106) mg/dL Calcium (8.4-10.2) mg/dL Total Bilirubin (0.2-1.3) mg/dL AST (17-59) U/L ALT (0-50) U/L Alkaline Phosphatase (38-126) U/L Troponin I 0.052 H* 0.054 H* (0.000-0.034) ng/mL NT-Pro-B Natriuret Pep (0-900) pg/mL Serum Total Protein (6.3-8.2) g/dL Albumin (3.5-5.0) g/dL Influenza Type A Ag NEGATIVE (NEGATIVE) Influenza Type B Ag NEGATIVE (NEGATIVE) RSV (PCR) NEGATIVE (Negative) SARS-CoV-2 (PCR) NEGATIVE (NEGATIVE) 05/06/21 05/06/21 Range/Units 10:32 14:00 WBC (4.0-10.5) K/mm3 RBC (4.1-5.6) M/mm3 Hgb (12.5-18.0) gm/dl Hct (42-50) % MCV (78-100) fl MCH (26-32) pg MCHC (32-36) g/dl RDW (11.5-14.0) % Plt Count (150-450) K/mm3 MPV (7.5-11.0) fl Gran % (36.0-66.0) % Eos # (Auto) (0-0.5) Absolute Lymphs (auto) (1.0-4.6) Absolute Monos (auto) (0.0-1.3) Lymphocytes % (24.0-44.0) % Monocytes % (0.0-12.0) % Eosinophils % (0.00-5.0) % Basophils % (0.0-0.4) % Absolute Granulocytes (1.4-6.9) Basophils # (0-0.4) Sodium (137-145) mmol/L Potassium (3.5-5.1) mmol/L Chloride (98-107) mmol/L Carbon Dioxide (22-30) mmol/L Anion Gap (5-15) MEQ/L BUN (9-20) mg/dL Creatinine (0.66-1.25) mg/dL Estimated GFR ML/MIN Glucose (74-106) mg/dL Calcium (8.4-10.2) mg/dL Total Bilirubin (0.2-1.3) mg/dL AST (17-59) U/L ALT (0-50) U/L Alkaline Phosphatase (38-126) U/L Troponin I 0.046 H* 0.039 H* (0.000-0.034) ng/mL NT-Pro-B Natriuret Pep (0-900) pg/mL Serum Total Protein (6.3-8.2) g/dL Albumin (3.5-5.0) g/dL Influenza Type A Ag (NEGATIVE) Influenza Type B Ag (NEGATIVE) RSV (PCR) (Negative) SARS-CoV-2 (PCR) (NEGATIVE) - Radiology Impressions Radiology Exams & Impressions: Radiology Procedures Category Date Time Status CHEST 1 VIEW (PORTABLE) Stat Exams 05/06/21 01:26 Completed ECHO W/2D AND DOPPLER [US] Routine Exams 05/06/21 08:12 Taken Assessment/Plan (1) Non-STEMI (non-ST elevated myocardial infarction) Current Visit: Yes Status: Acute Assessment & Plan: on wait list for [facility] Code(s): I21.4 - NON-ST ELEVATION (NSTEMI) MYOCARDIAL INFARCTION (2) Congestive heart failure Current Visit: Yes Status: Acute Code(s): I50.9 - HEART FAILURE, UNSPECIFIED (3) Elevated brain natriuretic peptide (BNP) level Current Visit: Yes Status: Acute Assessment & Plan: given IV Lasix in ER, ECHO to be read by [place] [facility] [employer]. Code(s): R79.89 - OTHER SPECIFIED ABNORMAL FINDINGS OF BLOOD CHEMISTRY (4) HTN (hypertension) Current Visit: Yes Status: Acute Assessment & Plan: started Metoprol Code(s): I10 - ESSENTIAL (PRIMARY) HYPERTENSION (5) Homeless Current Visit: Yes Status: Acute Assessment & Plan: Discharge Planning is investigating. Patient is and states "he walked out again" Code(s): Z59.00 - HOMELESSNESS UNSPECIFIED
[2021-05-07] MEDS: Toprol-Xl 25MG Tablets PO SCH ×3 (01:25→22:19)
[2021-05-07] MEDS ORDERED: DUONEB 0.5-3 MG/3 ml Neb IH ONE (04:12)
[2021-05-07] MEDS: DUONEB 0.5-3 MG/3 ml Neb IH PRN (04:14)
[2021-05-07 05:40] LABS: Hematocrit 43.3 % (42-50); Hemoglobin 14.1 gm/dl (12.5-18.0); Mean Cell Volume 97.7 fl (78-100); Mean Corpuscular Hemoglobin 31.8 pg (26-32); Mean Corpuscular Hgb Concent. 32.6 g/dl (32-36); Mean Platelet Volume 9.8 fl (7.5-11.0); Platelet Count 319 K/mm3 (150-450); Red Blood Count 4.43 M/mm3 (4.1-5.6); Red Cell Distribution Width 13.5 % (11.5-14.0); White Blood Count 10.9 K/mm3 (4.0-10.5)
[2021-05-07 05:59] LABS: ANION GAP 8.1 MEQ/L (5-15); BLOOD UREA NITROGEN 17 mg/dL (9-20); CHLORIDE 106 mmol/L (98-107); Calcium 8.1 mg/dL (8.4-10.2); Carbon Dioxide 26 mmol/L (22-30); Creatinine 1 1.02 mg/dL (0.66-1.25); EST GLOMERULAR FILTRATION RATE > 60.0 ML/MIN; Glucose 113 mg/dL (74-106); NT PRO BNP 6620 pg/mL (0-900); Potassium 3.9 mmol/L (3.5-5.1); SODIUM 136 mmol/L (137-145)
[2021-05-07 06:22] LABS: MAGNESIUM 2.1 mg/dL (1.6-2.3); Risk Ratio 4.2; TSH, 3RD Generation 2.2 mIU/L (0.47-4.68)
--- NOTE | 2021-05-07 07:42 | ECHO ---
Transthoracic echocardiographic examination and color Doppler was done on 05/06/2021. INDICATION: Congestive heart failure. IMPRESSION: 1) GLOBAL LEFT VENTRICULAR HYPOKINESIA. EJECTION FRACTION OF AROUND 40%. 2) MILD MITRAL REGURGITATION. 3) TRACE TRICUSPID REGURGITATION WITH RIGHT VENTRICULAR SYSTOLIC PRESSURE OF 27 MM OF MERCURY. 4) MILD LEFT VENTRICULAR HYPERTROPHY. The left ventricle is visualized and demonstrated a global-type of hypokinesia with an ejection fraction around 40%. There is mild left ventricular hypertrophy. The mitral valve is seen and this opens adequately. There is mild mitral regurgitation. Left atrium is normal. The aortic valve opens adequately. There is no significant gradient across the left ventricular outflow tract. The right side chambers are normal. There is trace tricuspid regurgitation. Right ventricular systolic pressure of 27 mm of Mercury.
[2021-05-07] MEDS: ENOXAPARIN SODIUM SQ SCH (09:38)
[2021-05-07] MEDS ORDERED: Ventolin Hfa MDI IH SCH (14:30)
[2021-05-07] MEDS ORDERED: VENTOLIN COMMON CANISTER IH SCH (15:00)
[2021-05-07] MEDS ORDERED: Lasix 40 MG/4 ML IV ONE (15:00)
[2021-05-07] MEDS ORDERED: Klor Con 10 MEQ PO SCH (15:00)
[2021-05-07 15:25] LABS: Amphetamine,Urine NEGATIVE (NEGATIVE); Barbiturate,Urine NEGATIVE (NEGATIVE); Benzodiazepine,Urine NEGATIVE (NEGATIVE); Cocaine,Urine NEGATIVE (NEGATIVE); Methadone,Urine NEGATIVE (NEGATIVE); Opiate,Urine NEGATIVE (NEGATIVE); PCP,Urine NEGATIVE (NEGATIVE); THC,Urine POSITIVE (NEGATIVE)
[2021-05-08] MEDS: DUONEB 0.5-3 MG/3 ml Neb IH PRN ×2 (02:11→18:44)
[2021-05-08 06:03] LABS: Hematocrit 45.6 % (42-50); Hemoglobin 15.1 gm/dl (12.5-18.0); Mean Cell Volume 97.9 fl (78-100); Mean Corpuscular Hemoglobin 32.4 pg (26-32); Mean Corpuscular Hgb Concent. 33.1 g/dl (32-36); Platelet Count 341 K/mm3 (150-450); Red Blood Count 4.66 M/mm3 (4.1-5.6); Red Cell Distribution Width 13.5 % (11.5-14.0); White Blood Count 11.5 K/mm3 (4.0-10.5)
[2021-05-08 07:42] LABS: ANION GAP 9.2 MEQ/L (5-15); BLOOD UREA NITROGEN 22 mg/dL (9-20); CHLORIDE 103 mmol/L (98-107); Calcium 8.5 mg/dL (8.4-10.2); Carbon Dioxide 30 mmol/L (22-30); Creatinine 1 1.15 mg/dL (0.66-1.25); EST GLOMERULAR FILTRATION RATE > 60.0 ML/MIN; Glucose 126 mg/dL (74-106); NT PRO BNP 6410 pg/mL (0-900); Potassium 4.5 mmol/L (3.5-5.1); SODIUM 138 mmol/L (137-145)
[2021-05-08] MEDS: ENOXAPARIN SODIUM SQ SCH (09:49)
[2021-05-08] MEDS: Toprol-Xl 25MG Tablets PO SCH ×2 (09:49→21:44)
--- NOTE | 2021-05-08 16:27 | XRAY ---
Indication: Chest pain. CHF. Comparison: May 06, 2021. PA/lateral chest again demonstrates COPD with new mild bilateral infrahilar infiltrates versus atelectasis. Heart not enlarged. Bony thorax intact.
[2021-05-08] MEDS: LEVOFLOXACIN 750MG/150ML D5W 750 MG/150 ML BAG IV SCH (18:17)
[2021-05-09] MEDS: DUONEB 0.5-3 MG/3 ml Neb IH PRN (04:48)
[2021-05-09 05:35] LABS: Hematocrit 45.3 % (42-50); Hemoglobin 14.8 gm/dl (12.5-18.0); Mean Cell Volume 98.1 fl (78-100); Mean Corpuscular Hgb Concent. 32.7 g/dl (32-36); Mean Platelet Volume 9.9 fl (7.5-11.0); Platelet Count 327 K/mm3 (150-450); Red Blood Count 4.62 M/mm3 (4.1-5.6); Red Cell Distribution Width 13.2 % (11.5-14.0); White Blood Count 12.5 K/mm3 (4.0-10.5)
[2021-05-09 06:16] LABS: ANION GAP 8.3 MEQ/L (5-15); BLOOD UREA NITROGEN 25 mg/dL (9-20); CHLORIDE 102 mmol/L (98-107); Calcium 8.6 mg/dL (8.4-10.2); Carbon Dioxide 31 mmol/L (22-30); Creatinine 1 1.23 mg/dL (0.66-1.25); EST GLOMERULAR FILTRATION RATE > 60.0 ML/MIN; Glucose 95 mg/dL (74-106); Potassium 5.2 mmol/L (3.5-5.1); SODIUM 136 mmol/L (137-145)
--- NOTE | 2021-05-09 08:43 | XRAY ---
Indication: CHF. Comparison: One day earlier. Portable chest unchanged again demonstrating COPD and mild bilateral infrahilar infiltrates/atelectasis. Heart and mediastinal structures within normal limits. No new cardiopulmonary abnormalities.
[2021-05-09] MEDS: LEVOFLOXACIN 750MG/150ML D5W 750 MG/150 ML BAG IV SCH (09:27)
[2021-05-09] MEDS: Toprol-Xl 25MG Tablets PO SCH ×2 (09:27→21:43)
[2021-05-09] MEDS: ENOXAPARIN SODIUM SQ SCH (09:30)
[2021-05-09] MEDS: Lasix 40 MG/4 ML IV SCH (15:13)
[2021-05-10] MEDS: DUONEB 0.5-3 MG/3 ml Neb IH PRN (01:53)
[2021-05-10 06:16] LABS: Absolute Neutrophil Ct (ANC) 5.44 (1.4-6.9); Basophil (Absolute #) 0.09 (0-0.4); Eosinophil % 7.8 % (0.00-5.0); Eosinophil (Absolute #) 0.82 (0-0.5); Hematocrit 48.8 % (42-50); Hemoglobin 15.9 gm/dl (12.5-18.0); Lymphocyte (Absolute #) 3.14 (1.0-4.6); Lymphocytes % 29.8 % (24.0-44.0); Mean Cell Volume 97.2 fl (78-100); Mean Corpuscular Hemoglobin 31.7 pg (26-32); Mean Corpuscular Hgb Concent. 32.6 g/dl (32-36); Monocyte (Absolute #) 1.03 (0.0-1.3); Monocytes % 9.8 % (0.0-12.0); Neutrophil % 51.7 % (36.0-66.0); Platelet Count 347 K/mm3 (150-450); Red Blood Count 5.02 M/mm3 (4.1-5.6); Red Cell Distribution Width 13.5 % (11.5-14.0); White Blood Count 10.5 K/mm3 (4.0-10.5)
[2021-05-10 06:51] LABS: ANION GAP 8.9 MEQ/L (5-15); BLOOD UREA NITROGEN 28 mg/dL (9-20); CHLORIDE 102 mmol/L (98-107); Calcium 8.8 mg/dL (8.4-10.2); Carbon Dioxide 32 mmol/L (22-30); Creatinine 1 1.18 mg/dL (0.66-1.25); EST GLOMERULAR FILTRATION RATE > 60.0 ML/MIN; Glucose 94 mg/dL (74-106); NT PRO BNP 2660 pg/mL (0-900); Potassium 4.2 mmol/L (3.5-5.1); SODIUM 139 mmol/L (137-145)
[2021-05-10 07:50] VITALS: BP 128/78; PULSE 61; O2SAT 96
[2021-05-10] MEDS: LEVOFLOXACIN 750MG/150ML D5W 750 MG/150 ML BAG IV SCH (09:30)
[2021-05-10] MEDS: Toprol-Xl 25MG Tablets PO SCH (09:35)
[2021-05-10] MEDS: Lasix 40 MG/4 ML IV SCH ×2 (09:35→09:56)
[2021-05-10] MEDS: ENOXAPARIN SODIUM SQ SCH (09:35)
--- NOTE | 2021-05-14 10:59 | DS ---
DISCHARGE DIAGNOSES: 1) CONGESTIVE HEART FAILURE. 2) ELEVATION OF TROPONINS. 3) PNEUMONIA. HOSPITAL COURSE: The patient is a 56-year-old white male patient who presented to the emergency room with increasing problems with chest pain. He has history of congestive heart failure but is on no medications. He reports previously he had myocardial infarction but again he has not seen a doctor routinely. The patient apparently had been sent to another hospital to get a cath done at a [facility] but again no bed was available as usual at this time due to COVID surge. The patient was admitted to the hospital. He had an elevation of his troponin to 0.054. I went ahead and ordered those done again. His EKG was consistent with left ventricular hypertrophy with strain pattern. He did have a significant elevation in his pro-BNP level. He was given IV Lasix and reports he had long urination but by the end he was feeling somewhat lightheaded and dizzy when getting up to the bathroom. Since then the patient has done okay. He is on no oxygen. Repeat chest x-ray showed possibility of mild bilateral infrahilar infiltrate versus atelectasis. The patient was placed on IV Levaquin to cover any potential for bacterial pneumonia. The patient's initial white count was noted to be 12.3, hemoglobin 12.8, PLT count 308,000. His metabolic panel showed pro-BNP of 7,800. His electrolytes were mildly abnormal. His liver enzymes were normal. His BUN 18 and creatinine 1.14. His initial labs were negative for respiratory syncytial virus, influenza and COVID. He had a lipid panel while he was here showing HDL 37, LDL 107. Repeat on his white count showed it down to 10.9 on 05/07/2021. He had a positive drug screen for THC which he was admitted. By the morning of 05/10/2021, the patient's pro-BNP was down to 2660. He was doing well, speaking without any difficulty with respirations and on no oxygen. By the morning of 05/10/2021, it was apparent that the patient was ready for discharge back home again to follow up with Dr. Aguero as an outpatient. He will continue to receive the p.o. Levaquin at 500 mg daily for an additional seven days. He has been placed on aspirin 81 mg a day. He was given nitroglycerin PRN which he has not taken since his admission. He is refusing subcu Lovenox as it burned the first time they gave it to him. He was placed on metoprolol 25 mg b.i.d. He was instructed to follow with Dr. Aguero in the next week and to take the Levaquin as ordered as well as the aspirin and metoprolol.
== END 2021-05-10 12:38 | disposition home or self-care (01) | DRG 282 ==
LOC: ED 01:05 → MED SURG 07:58 → OBSVTOIN 05-08 16:27
PROVIDERS: ADMIT Family Medicine; ATTEND Family Medicine
DX: I21.4 Non-ST elevation (NSTEMI) myocardial infarction (principal); I50.9 Heart failure, unspecified; R77.8 Other specified abnormalities of plasma proteins; R79.89 Other specified abnormal findings of blood chemistry; I11.0 Hypertensive heart disease with heart failure; F17.200 Nicotine dependence, unspecified, uncomplicated; Z59.00 Homelessness unspecified; Z20.828 Contact with and (suspected) exposure to other viral communicable diseases
CPT/HCPCS: 0241U; 36000; 36415; 71045; 71046; 80048; 80053; 80061; 80307; 83721; 83735; 83880; 84443; 84484; 85025; 85027; 93005; 93041; 93268; 93306; 94640; 94760; 96374; 99284; J1650; J1940; J1956; A9270-GY; G0378

== ENCOUNTER 2021-08-18 10:31 | Emergency (ER) | payer OTHER ==
[2021-08-18] MEDS ORDERED: TRANDATE 20 MG/4 ML SYRINGE IV ONE ×2 (10:53→11:02)
[2021-08-18] MEDS ORDERED: BABY ASPIRIN 81 MG CHEW PO ONE (10:54)
[2021-08-18] MEDS ORDERED: BABY ASPIRIN 81 MG CHEW ONE (11:01)
--- NOTE | 2021-08-18 11:10 | XRAY ---
Indication: Dyspnea. Comparison: May 09, 2021. Portable chest again demonstrates COPD. New hazy bilateral infrahilar interstitial alveolar opacities without consolidation/large effusion. Heart not enlarged. Bony thorax intact.
[2021-08-18 11:14] LABS: Appearance CLEAR (CLEAR); Bilirubin NEGATIVE (NEGATIVE); Glucose NEGATIVE (NEGATIVE); Ketones NEGATIVE (NEGATIVE); Ph 5.5 (5-6); Protein,Urine Dip 30 (Negative); RBC NEGATIVE Ery/ul (0-5); Specific Gravity >=1.030 (1.005-1.025)
[2021-08-18 11:15] LABS: Dipstick done @ ? MAIN LAB; Nitrite NEGATIVE (NEGATIVE); Urobilinogen 0.2 mg/dL (0-1)
[2021-08-18] MEDS ORDERED: Cardizem IV 50 MG/10 ML IV ONE ×2 (11:15→11:16)
[2021-08-18 11:16] LABS: Bacteria RARE /HPF (NEGATIVE); Mucus SLIGHT /HPF (NEGATIVE)
[2021-08-18 11:17] LABS: INR 1.16 (0.8-3.0); PROTIME 13.7 SECONDS (9.4-12.5)
[2021-08-18 11:18] LABS: Absolute Neutrophil Ct (ANC) 9.91 (1.4-6.9); Basophil (Absolute #) 0.02 (0-0.4); Eosinophil % 0.2 % (0.00-5.0); Eosinophil (Absolute #) 0.02 (0-0.5); Hematocrit 47.8 % (42-50); Hemoglobin 16.4 gm/dl (12.5-18.0); Lymphocytes % 15.6 % (24.0-44.0); Mean Cell Volume 91.9 fl (78-100); Mean Corpuscular Hemoglobin 31.5 pg (26-32); Mean Corpuscular Hgb Concent. 34.3 g/dl (32-36); Mean Platelet Volume 10.5 fl (7.5-11.0); Monocyte (Absolute #) 0.89 (0.0-1.3); Monocytes % 6.9 % (0.0-12.0); Neutrophil % 77.1 % (36.0-66.0); Platelet Count 244 K/mm3 (150-450); Red Cell Distribution Width 13.2 % (11.5-14.0); White Blood Count 12.8 K/mm3 (4.0-10.5)
[2021-08-18 11:19] LABS: PTT 31.3 SECONDS (25.1-36.5)
[2021-08-18 11:20] LABS: Urine Cultured Indicated? NO
[2021-08-18] MEDS ORDERED: Sodium Chloride 0.9% 500 ML 500 ML IV ONE ×4 (11:30→11:52)
[2021-08-18 11:47] LABS: A-aADO2 168; ABG HEMOGLOBIN 15.4; ABG POTASSIUM 4.3 (3.5-5.1); ABG SITE RIGHT BRACHIAL; ARTERIAL BLD GAS O2 SATURATION 93.9 % (95-100); ARTERIAL BLOOD GAS BASE EXCESS -2.3 (-2.0-2.0); ARTERIAL BLOOD GAS FIO2 40 %; ARTERIAL BLOOD GAS PCO2 38 mmHg (35-45); ARTERIAL BLOOD GAS PO2 70 mmHg (75-100); ARTERIAL BLOOD GAS pH 7.38 (7.35-7.45); CARBOXYHEMOGLOBIN 2.1 % THgb (0.0-6.9); HCO3- 22.5 (22-28); HGB O2 SAT 91.3 g/dF (94-100); Methhemoglobin 0.7 % (1.4-1.5)
[2021-08-18] MEDS ORDERED: Merrem 1 GM 1 G in Sodium Chloride 100ML MINI-BAG PLUS 100 ML IV ONE (11:56)
[2021-08-18] MEDS ORDERED: Merrem 1 GM IV ONE (11:56)
[2021-08-18] MEDS ORDERED: Sodium Chloride 100ML MINI-BAG PLUS 100 ML IV ONE (11:57)
[2021-08-18 11:58] LABS: Barbiturate,Urine NEGATIVE (NEGATIVE); Benzodiazepine,Urine NEGATIVE (NEGATIVE); Cocaine,Urine NEGATIVE (NEGATIVE); Methadone,Urine NEGATIVE (NEGATIVE); Opiate,Urine NEGATIVE (NEGATIVE); PCP,Urine NEGATIVE (NEGATIVE); THC,Urine POSITIVE (NEGATIVE)
[2021-08-18 12:03] LABS: ALKALINE PHOSPHATASE 97 U/L (38-126); ANION GAP 15.5 MEQ/L (5-15); BLOOD UREA NITROGEN 15 mg/dL (9-20); CHLORIDE 108 mmol/L (98-107); Calcium 9.1 mg/dL (8.4-10.2); Carbon Dioxide 19 mmol/L (22-30); Creatinine 1 0.92 mg/dL (0.66-1.25); EST GLOMERULAR FILTRATION RATE > 60.0 ML/MIN; Glucose 136 mg/dL (74-106); NT PRO BNP 13200 pg/mL (0-900); Potassium 4.5 mmol/L (3.5-5.1); SGOT/AST 27 U/L (17-59); SGPT/ALT 22 U/L (0-50); SODIUM 138 mmol/L (137-145); Total Protein 6.6 g/dL (6.3-8.2)
[2021-08-18 12:16] LABS: Amphetamine,Urine POSITIVE (NEGATIVE)
[2021-08-18 12:26] LABS: INFLUENZA A NEGATIVE (NEGATIVE); INFLUENZA B NEGATIVE (NEGATIVE); RESPIRATORY SYNCTIAL VIRUS NEGATIVE (Negative); SARS-CoV-2 Xpert Express NEGATIVE (NEGATIVE)
--- NOTE | 2021-08-18 12:30 | ERPHSYRPT ---
- History of Present Illness Historian: patient Exam Limitations: other (Very poor historian) Patient Subjective Stated Complaint: PT states "I have been dry heaving all night and I have generalized weakness." Triage Nursing Assessment: Pt presented alert and oriented X 3, skin wpd Pt ambulates with an upright steady gait, able to speak in clear full sentences. Pt in no apparent repspiratory distress. pt dry heaving and not sitting still. Physician History: 56 yo wm who is somewhat agitated and a poor historian presents w dyspnea since last night. Pt denied chest pain to my nurse but told me that pain is across entire chest and 9/10. He states that he has had a mild cough but denied fever/cough/N/V/D/abdominal pain/melena/hematochezia. Pt states that he has a h/o CHF/IA/HTN/Meth abuse. He does follow up with a PCP/Cardiololgist and is noncompliant on meds. Pt denies meth abuse at this time. Timing/Duration: yesterday Activities at Onset: rest Quality: other ("Just Pain") Location: other (Entire chest) Chest Pain Radiation: no radiation Severity of Pain-Max: severe Severity of Pain-Current: severe Modifying Factors: Improves With: nothing Associated Symptoms: nausea, shortness of breath, No vomiting, No cough, No hurts to breathe Nitro Today/Relief: no nitro taken today Aspirin Treatment Today: no aspirin today Allergies/Adverse Reactions: Penicillins Allergy (Severe, Verified 05/06/21 01:14) Home Medications: No Reportable Medications [No Reported Medications] 08/18/21 [History] Hx Tetanus, Diphtheria Vaccination/Date Given: No Hx Influenza Vaccination/Date Given: No Hx Pneumococcal Vaccination/Date Given: No Immunizations Up to Date: Yes Travel Risk - International Travel Have you traveled outside of the country in past 3 weeks: No - Coronavirus Screening Are you exhibiting any of the following symptoms?: No Close contact with a COVID-19 positive Pt in past 14-21 Days: No - Vaccine Status Have you recieved a Covid-19 vaccination: No - Review of Systems Constitutional: No Symptoms Eyes: No Symptoms Ears, Nose, & Throat: No Symptoms Respiratory: No Symptoms, Cough, Dyspnea Cardiac: No Symptoms, Chest Pain Abdominal/Gastrointestinal: No Symptoms Genitourinary Symptoms: No Symptoms Musculoskeletal: No Symptoms Skin: No Symptoms Neurological: No Symptoms Psychological: No Symptoms Endocrine: No Symptoms Hematologic/Lymphatic: No Symptoms Immunological/Allergic: No Symptoms - Past Medical History Pertinent Past Medical History: Yes Neurological History: No Pertinent History ENT History: No Pertinent History Cardiac History: No Pertinent History Respiratory History: No Pertinent History Endocrine Medical History: No Pertinent History Musculoskeletal History: No Pertinent History GI Medical History: No Pertinent History History: No Pertinent History Psycho-Social History: No Pertinent History Male Reproductive Disorders: No Pertinent History - Past Surgical History Past Surgical History: Yes (as a child) Neuro Surgical History: No Pertinent History Cardiac: No Pertinent History Respiratory: No Pertinent History Gastrointestinal: No Pertinent History Genitourinary: No Pertinent History Musculoskeletal: No Pertinent History Male Surgical History: No Pertinent History - Social History Smoking Status: Current every day smoker How long have you smoked: SINCE 13 Exposure to second hand smoke: Yes Drug Use: marijuana, methamphetamines Patient Lives Alone: Yes - Nursing Vital Signs Nursing Vital Signs: Initial Vital Signs Temperature 97.9 F 08/18/21 10:31 Pulse Rate 125 H 08/18/21 10:31 Respiratory Rate 26 H 08/18/21 10:31 Blood Pressure 157/120 08/18/21 10:31 O2 Sat by Pulse Oximetry 94 L 08/18/21 10:31 Pain Scale Pain Intensity 0 Tachy/Hypertensive - Physical Exam General Appearance: mild distress Eye Exam: PERRL/EOMI, eyes nml inspection Ears, Nose, Throat Exam: normal ENT inspection, TMs normal, pharynx normal, moist mucous membranes Neck Exam: normal inspection, non-tender, supple, full range of motion, No meningismus, No mass, No Brudzinski, No Kernig's, No carotid bruit Respiratory Exam: diminished breath sounds (Decreased BS bases B w rales L base>Rbase) Cardiovascular Exam: tachycardia, capillary refill <2 sec, No murmur Gastrointestinal/Abdomen Exam: soft, normal bowel sounds, No tenderness Back Exam: normal inspection, normal range of motion, No CVA tenderness, No vertebral tenderness Extremity Exam: normal inspection, normal range of motion Neurologic Exam: alert, oriented x 3, No cooperative (Pt uncooperative w hx and also exam) Skin Exam: diaphoresis Lymphatic Exam: No adenopathy SpO2 Interpretation: normal SpO2: 99 O2 Delivery: Room Air - Course Nursing assessment & vital signs reviewed: Yes EKG Interpreted by Me: RATE (Sinus tach/R120/Prolonged QTc/LVH w strain pattern/Nonspecific ST segment changes/EKG#2Tachycardia/Rate 151/Prolonged QTc/LVH wstrain/Diffuse Twave changes/EKG#3Sinus tach/[id number]/Prolonged QTc/LVH wstrainST depression V4-V6/EKG#4Sinus tach/[id number]/LVH wstrain/ST depression V4- V5/EKG#5 NSR/Rate72/No) - Radiology Exams Chest X-ray Interpretation: Discussed w/ radiologist (CXR Hazy B infrahilar interstitual opacities) Ordered Tests: Active Orders 24 hr Category Date Time Status EKG-ER Only STAT Care 08/18/21 10:50 Completed IV Insertion STAT Care 08/18/21 10:50 Completed CHEST 1 VIEW (PORTABLE) Stat Exams 08/18/21 10:50 Completed ABG [ARTERIAL BLOOD GASES] Stat Lab 08/18/21 11:40 Completed BLOOD CULTURE Stat Lab 08/18/21 12:15 Received CBC W DIFF Stat Lab 08/18/21 10:55 Completed CMP Stat Lab 08/18/21 10:55 Completed D-DIMER QUANTITATIVE Stat Lab 08/18/21 10:55 Completed Lactic Acid Stat Lab 08/18/21 11:13 Completed NT PRO BNP Stat Lab 08/18/21 10:55 Completed PROTIME WITH INR Stat Lab 08/18/21 10:55 Completed PTT Stat Lab 08/18/21 10:55 Completed TROPONIN Q3H Lab 08/18/21 10:55 Completed Urine Triage Profile Stat Lab 08/18/21 11:08 Completed Medication Summary Discontinued Medications Generic Name Dose Route Start Last Admin Trade Name Tarikq PRN Reason Stop Dose Admin Aspirin 324 mg 08/18/21 10:54 08/18/21 11:02 Aspirin 81 Mg Tab.Chew PO 08/18/21 10:55 324 mg STAT ONE Administration Aspirin Confirm 08/18/21 11:01 Aspirin 81 Mg Tab.Chew Administered 08/18/21 11:02 Dose 324 mg .ROUTE .STK-MED ONE Diltiazem HCl 10 mg 08/18/21 11:15 08/18/21 11:17 Diltiazem Hcl Iv 5 Mg/Ml Vial IV 08/18/21 11:16 10 mg STAT ONE Administration Diltiazem HCl Confirm 08/18/21 11:16 Diltiazem Hcl Iv 5 Mg/Ml Vial Administered 08/18/21 11:17 Dose 50 mg IV .STK-MED ONE Heparin Sodium (Beef Lung) 5,000 unit 08/18/21 12:35 08/18/21 12:39 Heparin 5000 Unit/0.5 Ml Syringe IV 08/18/21 12:36 5,000 unit STAT ONE Administration Heparin Sodium (Beef Lung) Confirm 08/18/21 12:39 Heparin 5000 Unit/0.5 Ml Syringe Administered 08/18/21 12:40 Dose 5,000 unit .ROUTE .STK-MED ONE Sodium Chloride 500 mls @ 500 mls/hr 08/18/21 11:30 08/18/21 12:47 Sodium Chloride 0.9% 500 Ml IV 08/18/21 12:29 Infused .Q1H ONE Infusion Sodium Chloride Confirm 08/18/21 11:30 Sodium Chloride 0.9% 500 Ml Administered 08/18/21 11:31 Dose 500 mls @ ud IV .STK-MED ONE Sodium Chloride 500 mls @ 500 mls/hr 08/18/21 11:51 08/18/21 13:08 Sodium Chloride 0.9% 500 Ml IV 08/18/21 12:50 Infused .Q1H ONE Infusion Sodium Chloride Confirm 08/18/21 11:52 Sodium Chloride 0.9% 500 Ml Administered 08/18/21 11:53 Dose 500 mls @ ud IV .STK-MED ONE Meropenem 1 g/ Sodium Chloride 100 mls @ 200 mls/hr 08/18/21 11:56 08/18/21 12:00 IV 08/18/21 12:25 200 mls/hr STAT ONE Administration Sodium Chloride Confirm 08/18/21 11:57 Sodium Chloride 100ml Mini-Bag Plus Administered 08/18/21 11:58 Dose 100 mls @ ud IV .STK-MED ONE Heparin Sodium/Dextrose 25,000 units in 250 mls @ 10 mls/hr 08/18/21 13:00 08/18/21 12:40 Heparin 25,000 Units/D5w 250ml Premix IV 09/17/21 12:59 10 mls/hr .Q24H BRISSA 10 mls/hr Administration Heparin Sodium/Dextrose Confirm 08/18/21 12:37 Heparin 25,000 Units/D5w 250ml Premix Administered 08/18/21 12:38 Dose 25,000 units in 250 mls @ ud IV .STK-MED ONE Labetalol HCl 20 mg 08/18/21 10:53 08/18/21 11:03 Labetalol Hcl 20 Mg/4 Ml Disp.Syringe IV 08/18/21 10:54 20 mg STAT ONE Administration Labetalol HCl Confirm 08/18/21 11:02 Labetalol Hcl 20 Mg/4 Ml Disp.Syringe Administered 08/18/21 11:03 Dose 20 mg IV .STK-MED ONE Meropenem Confirm 08/18/21 11:56 Meropenem 1 Gm Vial Administered 08/18/21 11:57 Dose 1 g IV .STK-MED ONE Lab/Rad Data: Laboratory Result Diagrams 08/18/21 10:55 08/18/21 10:55 Laboratory Results 08/18/21 08/18/21 08/18/21 Range/Units 11:40 11:13 11:08 WBC (4.0-10.5) K/mm3 RBC (4.1-5.6) M/mm3 Hgb (12.5-18.0) gm/dl Hct (42-50) % MCV (78-100) fl MCH (26-32) pg MCHC (32-36) g/dl RDW (11.5-14.0) % Plt Count (150-450) K/mm3 MPV (7.5-11.0) fl Gran % (36.0-66.0) % Eos # (Auto) (0-0.5) Absolute Lymphs (auto) (1.0-4.6) Absolute Monos (auto) (0.0-1.3) Lymphocytes % (24.0-44.0) % Monocytes % (0.0-12.0) % Eosinophils % (0.00-5.0) % Basophils % (0.0-0.4) % Absolute Granulocytes (1.4-6.9) Basophils # (0-0.4) PT (9.4-12.5) SECONDS INR (0.8-3.0) APTT (25.1-36.5) SECONDS D-Dimer (215-500) ng/mL Puncture Site RIGHT BRACHIAL pCO2 38 (35-45) mmHg pO2 70 L (75-100) mmHg Base Excess -2.3 L (-2.0-2.0) O2 Saturation 91.3 L (94-100) g/dF ABG pH 7.38 (7.35-7.45) ABG HCO3 22.5 (22-28) ABG O2 Sat (Measured) 93.9 L (95-100) % Brian Test NOT APPLICABLE A-a Gradient 168 a/A Ratio 0.29 Hemoglobin 15.4 Carboxyhemoglobin 2.1 (0.0-6.9) % THgb Methemoglobin 0.7 L (1.4-1.5) % Temperature 37.0 C POC O2 Flow Rate 40 % Sodium (137-145) mmol/L Potassium 4.3 (3.5-5.1) mmol/L Chloride (98-107) mmol/L Carbon Dioxide (22-30) mmol/L Anion Gap (5-15) MEQ/L BUN (9-20) mg/dL Creatinine (0.66-1.25) mg/dL Estimated GFR ML/MIN Glucose (74-106) mg/dL Lactic Acid 1.8 (0.4-2.0) Calcium (8.4-10.2) mg/dL Total Bilirubin (0.2-1.3) mg/dL AST (17-59) U/L ALT (0-50) U/L Alkaline Phosphatase (38-126) U/L Troponin I (0.000-0.034) ng/mL NT-Pro-B Natriuret Pep (0-900) pg/mL Serum Total Protein (6.3-8.2) g/dL Albumin (3.5-5.0) g/dL Urinalys Dipstick Clnc Urine Color Urine Appearance Urine pH Ur Specific [place] Urine Protein POC Urine Protein Conf (Negative) Urine Ketones Urine Blood Urine Nitrite Urine Bilirubin Urine Urobilinogen Ur Leukocyte Esterase Urine Leukocytes (NEGATIVE) Urine WBC (Auto) (0-5) /HPF Urine RBC (Auto) (0-2) /HPF U Epithel Cells (Auto) (FEW) /HPF Urine Bacteria (Auto) (NEGATIVE) /HPF Urine RBC (0-5) Sheng/ul U Non-Squamous Epi Cells Urine Mucus (Auto) (NEGATIVE) /HPF Ur Culture Indicated? Urine Culture Reflexed Urine Glucose (NEGATIVE) mg/dL Urine Opiates Level NEGATIVE (NEGATIVE) Ur Methadone NEGATIVE (NEGATIVE) Urine Barbiturates NEGATIVE (NEGATIVE) Ur Phencyclidine (PCP) NEGATIVE (NEGATIVE) Urine Amphetamine POSITIVE (NEGATIVE) U Benzodiazepine Level NEGATIVE (NEGATIVE) Urine Cocaine NEGATIVE (NEGATIVE) Urine Marijuana (THC) POSITIVE (NEGATIVE) Influenza Type A Ag (NEGATIVE) Influenza Type B Ag (NEGATIVE) RSV (PCR) (Negative) SARS-CoV-2 (PCR) (NEGATIVE) 08/18/21 08/18/21 08/18/21 Range/Units 11:08 11:00 10:55 WBC (4.0-10.5) K/mm3 RBC (4.1-5.6) M/mm3 Hgb (12.5-18.0) gm/dl Hct (42-50) % MCV (78-100) fl MCH (26-32) pg MCHC (32-36) g/dl RDW (11.5-14.0) % Plt Count (150-450) K/mm3 MPV (7.5-11.0) fl Gran % (36.0-66.0) % Eos # (Auto) (0-0.5) Absolute Lymphs (auto) (1.0-4.6) Absolute Monos (auto) (0.0-1.3) Lymphocytes % (24.0-44.0) % Monocytes % (0.0-12.0) % Eosinophils % (0.00-5.0) % Basophils % (0.0-0.4) % Absolute Granulocytes (1.4-6.9) Basophils # (0-0.4) PT (9.4-12.5) SECONDS INR (0.8-3.0) APTT (25.1-36.5) SECONDS D-Dimer 324 (215-500) ng/mL Puncture Site pCO2 (35-45) mmHg pO2 (75-100) mmHg Base Excess (-2.0-2.0) O2 Saturation (94-100) g/dF ABG pH (7.35-7.45) ABG HCO3 (22-28) ABG O2 Sat (Measured) (95-100) % Brian Test A-a Gradient a/A Ratio Hemoglobin Carboxyhemoglobin (0.0-6.9) % THgb Methemoglobin (1.4-1.5) % Temperature C POC O2 Flow Rate % Sodium (137-145) mmol/L Potassium (3.5-5.1) mmol/L Chloride (98-107) mmol/L Carbon Dioxide (22-30) mmol/L Anion Gap (5-15) MEQ/L BUN (9-20) mg/dL Creatinine (0.66-1.25) mg/dL Estimated GFR ML/MIN Glucose (74-106) mg/dL Lactic Acid (0.4-2.0) Calcium (8.4-10.2) mg/dL Total Bilirubin (0.2-1.3) mg/dL AST (17-59) U/L ALT (0-50) U/L Alkaline Phosphatase (38-126) U/L Troponin I (0.000-0.034) ng/mL NT-Pro-B Natriuret Pep (0-900) pg/mL Serum Total Protein (6.3-8.2) g/dL Albumin (3.5-5.0) g/dL Urinalys Dipstick Clnc MAIN LAB Urine Color Cancelled Urine Appearance Cancelled Urine pH Cancelled Ur Specific [place] Cancelled Urine Protein Cancelled POC Urine Protein Conf 30 (Negative) Urine Ketones Cancelled Urine Blood Cancelled Urine Nitrite Cancelled Urine Bilirubin Cancelled Urine Urobilinogen Cancelled Ur Leukocyte Esterase Cancelled Urine Leukocytes NEGATIVE (NEGATIVE) Urine WBC (Auto) NONE (0-5) /HPF Urine RBC (Auto) NONE (0-2) /HPF U Epithel Cells (Auto) NONE (FEW) /HPF Urine Bacteria (Auto) RARE (NEGATIVE) /HPF Urine RBC NEGATIVE (0-5) Sheng/ul U Non-Squamous Epi Cells Cancelled Urine Mucus (Auto) SLIGHT (NEGATIVE) /HPF Ur Culture Indicated? NO Urine Culture Reflexed Cancelled Urine Glucose NEGATIVE (NEGATIVE) mg/dL Urine Opiates Level (NEGATIVE) Ur Methadone (NEGATIVE) Urine Barbiturates (NEGATIVE) Ur Phencyclidine (PCP) (NEGATIVE) Urine Amphetamine (NEGATIVE) U Benzodiazepine Level (NEGATIVE) Urine Cocaine (NEGATIVE) Urine Marijuana (THC) (NEGATIVE) Influenza Type A Ag NEGATIVE (NEGATIVE) Influenza Type B Ag NEGATIVE (NEGATIVE) RSV (PCR) NEGATIVE (Negative) SARS-CoV-2 (PCR) NEGATIVE (NEGATIVE) 08/18/21 08/18/21 08/18/21 Range/Units 10:55 10:55 10:55 WBC (4.0-10.5) K/mm3 RBC (4.1-5.6) M/mm3 Hgb (12.5-18.0) gm/dl Hct (42-50) % MCV (78-100) fl MCH (26-32) pg MCHC (32-36) g/dl RDW (11.5-14.0) % Plt Count (150-450) K/mm3 MPV (7.5-11.0) fl Gran % (36.0-66.0) % Eos # (Auto) (0-0.5) Absolute Lymphs (auto) (1.0-4.6) Absolute Monos (auto) (0.0-1.3) Lymphocytes % (24.0-44.0) % Monocytes % (0.0-12.0) % Eosinophils % (0.00-5.0) % Basophils % (0.0-0.4) % Absolute Granulocytes (1.4-6.9) Basophils # (0-0.4) PT 13.7 H (9.4-12.5) SECONDS INR 1.16 (0.8-3.0) APTT 31.3 (25.1-36.5) SECONDS D-Dimer (215-500) ng/mL Puncture Site pCO2 (35-45) mmHg pO2 (75-100) mmHg Base Excess (-2.0-2.0) O2 Saturation (94-100) g/dF ABG pH (7.35-7.45) ABG HCO3 (22-28) ABG O2 Sat (Measured) (95-100) % Brian Test A-a Gradient a/A Ratio Hemoglobin Carboxyhemoglobin (0.0-6.9) % THgb Methemoglobin (1.4-1.5) % Temperature C POC O2 Flow Rate % Sodium 138 (137-145) mmol/L Potassium 4.5 (3.5-5.1) mmol/L Chloride 108 H (98-107) mmol/L Carbon Dioxide 19 L (22-30) mmol/L Anion Gap 15.5 H (5-15) MEQ/L BUN 15 (9-20) mg/dL Creatinine 0.92 (0.66-1.25) mg/dL Estimated GFR > 60.0 ML/MIN Glucose 136 H (74-106) mg/dL Lactic Acid (0.4-2.0) Calcium 9.1 (8.4-10.2) mg/dL Total Bilirubin 1.50 H (0.2-1.3) mg/dL AST 27 (17-59) U/L ALT 22 (0-50) U/L Alkaline Phosphatase 97 (38-126) U/L Troponin I 0.074 H* (0.000-0.034) ng/mL NT-Pro-B Natriuret Pep 02019 H (0-900) pg/mL Serum Total Protein 6.6 (6.3-8.2) g/dL Albumin 4.0 (3.5-5.0) g/dL Urinalys Dipstick Clnc Urine Color Urine Appearance Urine pH Ur Specific [place] Urine Protein POC Urine Protein Conf (Negative) Urine Ketones Urine Blood Urine Nitrite Urine Bilirubin Urine Urobilinogen Ur Leukocyte Esterase Urine Leukocytes (NEGATIVE) Urine WBC (Auto) (0-5) /HPF Urine RBC (Auto) (0-2) /HPF U Epithel Cells (Auto) (FEW) /HPF Urine Bacteria (Auto) (NEGATIVE) /HPF Urine RBC (0-5) Sheng/ul U Non-Squamous Epi Cells Urine Mucus (Auto) (NEGATIVE) /HPF Ur Culture Indicated? Urine Culture Reflexed Urine Glucose (NEGATIVE) mg/dL Urine Opiates Level (NEGATIVE) Ur Methadone (NEGATIVE) Urine Barbiturates (NEGATIVE) Ur Phencyclidine (PCP) (NEGATIVE) Urine Amphetamine (NEGATIVE) U Benzodiazepine Level (NEGATIVE) Urine Cocaine (NEGATIVE) Urine Marijuana (THC) (NEGATIVE) Influenza Type A Ag (NEGATIVE) Influenza Type B Ag (NEGATIVE) RSV (PCR) (Negative) SARS-CoV-2 (PCR) (NEGATIVE) 08/18/21 Range/Units 10:55 WBC 12.8 H (4.0-10.5) K/mm3 RBC 5.20 (4.1-5.6) M/mm3 Hgb 16.4 (12.5-18.0) gm/dl Hct 47.8 (42-50) % MCV 91.9 (78-100) fl MCH 31.5 (26-32) pg MCHC 34.3 (32-36) g/dl RDW 13.2 (11.5-14.0) % Plt Count 244 (150-450) K/mm3 MPV 10.5 (7.5-11.0) fl Gran % 77.1 H (36.0-66.0) % Eos # (Auto) 0.02 (0-0.5) Absolute Lymphs (auto) 2.00 (1.0-4.6) Absolute Monos (auto) 0.89 (0.0-1.3) Lymphocytes % 15.6 L (24.0-44.0) % Monocytes % 6.9 (0.0-12.0) % Eosinophils % 0.2 (0.00-5.0) % Basophils % 0.2 (0.0-0.4) % Absolute Granulocytes 9.91 H (1.4-6.9) Basophils # 0.02 (0-0.4) PT (9.4-12.5) SECONDS INR (0.8-3.0) APTT (25.1-36.5) SECONDS D-Dimer (215-500) ng/mL Puncture Site pCO2 (35-45) mmHg pO2 (75-100) mmHg Base Excess (-2.0-2.0) O2 Saturation (94-100) g/dF ABG pH (7.35-7.45) ABG HCO3 (22-28) ABG O2 Sat (Measured) (95-100) % Brian Test A-a Gradient a/A Ratio Hemoglobin Carboxyhemoglobin (0.0-6.9) % THgb Methemoglobin (1.4-1.5) % Temperature C POC O2 Flow Rate % Sodium (137-145) mmol/L Potassium (3.5-5.1) mmol/L Chloride (98-107) mmol/L Carbon Dioxide (22-30) mmol/L Anion Gap (5-15) MEQ/L BUN (9-20) mg/dL Creatinine (0.66-1.25) mg/dL Estimated GFR ML/MIN Glucose (74-106) mg/dL Lactic Acid (0.4-2.0) Calcium (8.4-10.2) mg/dL Total Bilirubin (0.2-1.3) mg/dL AST (17-59) U/L ALT (0-50) U/L Alkaline Phosphatase (38-126) U/L Troponin I (0.000-0.034) ng/mL NT-Pro-B Natriuret Pep (0-900) pg/mL Serum Total Protein (6.3-8.2) g/dL Albumin (3.5-5.0) g/dL Urinalys Dipstick Clnc Urine Color Urine Appearance Urine pH Ur Specific [place] Urine Protein POC Urine Protein Conf (Negative) Urine Ketones Urine Blood Urine Nitrite Urine Bilirubin Urine Urobilinogen Ur Leukocyte Esterase Urine Leukocytes (NEGATIVE) Urine WBC (Auto) (0-5) /HPF Urine RBC (Auto) (0-2) /HPF U Epithel Cells (Auto) (FEW) /HPF Urine Bacteria (Auto) (NEGATIVE) /HPF Urine RBC (0-5) Sheng/ul U Non-Squamous Epi Cells Urine Mucus (Auto) (NEGATIVE) /HPF Ur Culture Indicated? Urine Culture Reflexed Urine Glucose (NEGATIVE) mg/dL Urine Opiates Level (NEGATIVE) Ur Methadone (NEGATIVE) Urine Barbiturates (NEGATIVE) Ur Phencyclidine (PCP) (NEGATIVE) Urine Amphetamine (NEGATIVE) U Benzodiazepine Level (NEGATIVE) Urine Cocaine (NEGATIVE) Urine Marijuana (THC) (NEGATIVE) Influenza Type A Ag (NEGATIVE) Influenza Type B Ag (NEGATIVE) RSV (PCR) (Negative) SARS-CoV-2 (PCR) (NEGATIVE) - Progress Progress: improved Air Movement: fair Progress Note: 08/18/21 12:[address] Varner at [facility] 08/18/21 15:05 [id number] po 20mg IV Labetalol w minimal improvement in HR/BP Pt's HR later jumped into 150's which appeared to be a nonspecific atrial tachycardia Pt given IV Cardizem x2 w acceptable decrease in BP but developed mild hypotension which was treated w NS bolus 500mg IV x2 Blood cultures done 1gm Meropenem given Pt accepted by Dr. Varner 5000u IV Heparin bolus Heparin drip started Pt w good BP and in NSR when EMS transferred pt Blood Culture(s) Obtained: Yes Antibiotics given: Yes Counseled pt/family regarding: lab results, diagnosis, need for follow-up, rad results - Departure Departure Disposition: Transfer Clinical Impression: NSTEMI (non-ST elevated myocardial infarction), Methamphetamine abuse, Pneumonia Condition: Stable Critical Care Time: Yes Critical Care Time(excluding separately billable procedures): Critical 75-104 mins Referrals: DOCTOR,NO FAMILY [Primary Care Provider] - Follow up/PCP as directed
[2021-08-18] MEDS ORDERED: Heparin 5000 UNITS/0.5 ML (HIGH RISK MED) IV ONE (12:35)
[2021-08-18] MEDS ORDERED: Heparin 25,000 units/D5W 250ML PREMIX 25,000 UNITS/250 ML BAG IV ONE (12:37)
[2021-08-18] MEDS ORDERED: Heparin 5000 UNITS/0.5 ML (HIGH RISK MED) ONE (12:39)
[2021-08-18] MEDS ORDERED: Heparin 25,000 units/D5W 250ML PREMIX 25,000 UNITS/250 ML BAG IV SCH (13:00)
[2021-08-18 13:06] VITALS: BP 91/63; PULSE 73
[2021-08-18 14:59] VITALS: O2SAT 99
== END 2021-08-18 13:29 | disposition short-term general hospital (02) ==
LOC: ED 10:31
DX: I21.4 Non-ST elevation (NSTEMI) myocardial infarction (principal); I25.2 Old myocardial infarction; I10 Essential (primary) hypertension; J18.9 Pneumonia, unspecified organism; F15.10 Other stimulant abuse, uncomplicated; R07.9 Chest pain, unspecified; R06.00 Dyspnea, unspecified; R05.9 Cough, unspecified; R11.0 Nausea; Z72.0 Tobacco use
CPT/HCPCS: 0241U; 36000; 36415; 36600; 71045; 80053; 80307; 81015; 82375; 82803; 83605; 83880; 84484; 85025; 85379; 85610; 85730; 87040; 93005; 96360; 96361; 96365; 96372; 96374; 96375; 99285; J1644; A9270-GY